=== PATIENT | female | born 1985 | race African-American/Black ===

== ENCOUNTER 2022-11-28 17:57 | Emergency (ER) | payer OTHER, SELFPAY ==
[2022-11-28 18:16] VITALS: BP 132/98; PULSE 78; RESP 20; TEMP 35.8; O2SAT 100
--- NOTE | 2022-11-28 20:03 | PC.NURSE ---
patient left without being seen
== END 2022-11-28 23:02 | disposition left against medical advice (07) ==
DX: R11.2 Nausea with vomiting, unspecified (principal)
CPT/HCPCS: 99199

== ENCOUNTER 2025-01-09 09:33 | Outpatient (CLI) | payer BC, SELFPAY ==
[2025-01-09 09:57] LABS: Hematocrit 24.7 % (37.0-47.0); Hemoglobin 7.0 g/dL (12.0-15.0)
--- OUTSIDE RECORDS SUMMARY | 2025-01-09 10:16 | XMS_ITS | Clinical Summary ---
[facility] Address [address] [place] [id number] Care Team Providers Care Airport Manager Name Role Phone No, Physician Primary Care Provider [phone] No, Physician Unavailable Allergies Active Allergy Reactions Criticality Noted Date Comments Fexofenadine Swelling Medium 04/02/2021 Fexofenadine Anaphylaxis High Reaction: ANAPHYLAXIS Medications tranexamic acid (LYSTEDA) 650 mg tablet Take 2 tablets (1,300 mg total) by mouth 3 (three) times a day 30 tablet 11 05/03/2021 Active Active Problems No known active problems Surgical History Surgery Date Site/Laterality Comments TUBAL LIGATION Bilateral December 2015, pt reported. DILATION AND CURETTAGE OF UTERUS ESSURE TUBAL LIGATION Bilateral Medical History Medical History Date Comments Fibroid Family History Medical History Relation Name Comments Breast cancer Neg Hx Ovarian cancer Neg Hx Social History Tobacco Use Types Packs/Day Years Used Date Smoking Tobacco: Every Day Cigarettes 0.5 15 Smokeless Tobacco: Never Tobacco Cessation:Ready to Q uit: No; Counseling Given: Yes Comments No Sex and Gender Information Value Date Recorded Sex Assigned at Not on file Legal Sex Female 5:12 PM [employer] Gender Identity Not on file Sexual Orientation Not on file Obstetrics History Para Term AB IAB SAB Ectopic Multiple Livin g Live Births 4 2 0 0 0 0 0 0 Date Outcome GA Total Labor Labor/2nd/3rd Weight Sex Type Anes PTL Jade A1 A5 Name Clin Para Para Last Filed Vital Signs Vital Sign Reading Time Taken Comments Blood Pressure 120/84 04/26/2021 12:04 PM [employer] WORK[employer] Pulse 82 04/29/2017 9:59 AM [employer]UDIO [employer] UP WORKER Temperature 36.6 C (97.8 F) 04/29/2017 9:59 AM [employer]UD[employer] UP WORKER Respiratory Rate 18 04/29/2017 9:59 AM [employer]UDIO [employer] UP WORKER Oxygen Saturation 99% 04/29/2017 9:59 AM [employer]UD[employer] UP WORKER Inhaled Oxygen Concentration - - Weight 48.1 kg (106 lb) 04/26/2021 12:04 PM [employer]UD[employer] WORK[employer] Height 153.7 cm (5' 0.51) 04/26/2021 12:04 PM C Body Mass Index 20.35 04/26/2021 12:04 PM [employer]UDIO [employer] WORKER Plan of Treatment Not on file Insurance CHOICE PLUS CHOICE PLUS Care Teams Airport Manager Relationship Specialty Start Date End Date No, Physician PCP - General 03/05/21 No, Physician 03/05/21
== END 2025-01-09 09:34 | disposition home or self-care (01) ==
LOC: ANHSURGERY 09:39
PROVIDERS: Anesthesiology; Visit Provider Obstetrics & Gynecology
DX: D64.9 Anemia, unspecified (principal); R10.20 Pelvic and perineal pain unspecified side
CPT/HCPCS: 36415; 85014; 85018; 86850; 86900; 86901

== ENCOUNTER 2025-01-14 18:06 | Observation (INO) | payer BC, SELFPAY ==
[2025-01-01 14:56] VITALS: BMI 21.9
--- NOTE | 2025-01-01 14:59 | PC.NURSE ---
[facility] has started construction of its new state of the art ER which will open Spring 2026. With this, we anticipate parking may be a challenge for some our surgical patients and families. Parking spaces are limited but are available for all Surgical, obstetrics, and ER patients sharing this lot. If you arrive and find you are having a hard time finding a parking space, please note that we understand the challenges, please drive around the hospital and park near Hospital Entrance 1. When you enter this entrance, you can ask a volunteer to direct or take you back to the surgical waiting area to check in. We appreciate everyone?s understanding of these expected challenges while we build for your future. Report to the Outpatient Waiting Room, entrance under the green pavilion located off [address], at time _0830_ on date _[phone]_. Planned Procedure Time: _1030_.? Time changes happen often and if your time is changed the preop area will call you the afternoon before. - You and your visitor will be asked to self-screen and do not enter if you have any COVID symptoms. Please call surgeon if you need to reschedule. - A mask is optional within the hospital at this time. Patients may have clear liquids (water, carbonated beverages, clear teas, apple juice) until 3 hours prior to surgery with a maximum of 20 ounces. - No food from midnight until time of surgery and no smoking, or chewing tobacco (or any form of nicotine). No chewing gum, candy or mints. Take only the following medications with a SIP of water on the morning of surgery: DO NOT STOP ANY OF YOUR OTHER PRESCRIPTION MEDICATIONS PRIOR TO SURGERY EXCEPT THE FOLLOWING Hold all vitamins and supplements for 3 days per anesthesiologist. Medications to discontinue per physician Date to take last viwu___[phone]___ Please no make-up, nail taiwanese, hairspray, perfume, deodorant, or body powder the day of surgery.? No jewelry (including any body piercings) or valuables the day of surgery, leave them at home.? Please take a shower or bath the night before, or the morning of, surgery with an antibacterial soap.? Wear comfortable, loose fitting clothing.? - Jewelry must be removed prior to entering the operating room.? Rings and piercings that are not removed may be cut off. - The hospital will not accept responsibility for valuables.? - Please leave all valuables, including medications, at home the day of surgery. If you are going home after surgery, a licensed screw driver operator must drive you home.? - NO public transportation without another adult if you receive anesthesia. - We recommend that an adult stay with you for 24 hours following discharge. - We also recommend that you do not drive, make important decision, drink alcoholic beverages, or take any drugs that were not prescribed by your health care provider for at least 24 hours after your discharge time. Follow any additional instructions given to you from your surgeon. Telephone instructions given to __Elin__and asked if any additional questions and then verbalized understanding. Patient advised to call surgeon office or pre surgery nurse liaison [phone] if any additional questions.
[2025-01-14] VITALS (8 sets, daily range): BP systolic 97–123; BP diastolic 66–80; PULSE 66–81; RESP 14–18; TEMP 36.5–36.9; O2SAT 99–100; BMI 20.7
[2025-01-14 18:33] LABS: Hematocrit 23.2 % (37.0-47.0)
[2025-01-14 18:37] LABS: Hemoglobin 6.5 g/dL (12.0-15.0)
[2025-01-14] MEDS: ALPRAZolam (*CRX) 0.5 MG TABLET 1 MG PO (21:15)
[2025-01-15] VITALS (20 sets, daily range): BP systolic 107–181; BP diastolic 65–89; PULSE 58–78; RESP 12–18; TEMP 36.1–37.2; O2SAT 100
[2025-01-15 05:17] LABS: Hematocrit 34.5 % (37.0-47.0); Hemoglobin 10.7 g/dL (12.0-15.0)
--- OUTSIDE RECORDS SUMMARY | 2025-01-15 05:25 | XMS_ITS | Data Portability ---
Author Organization [facility] [place] Address [address] [place] [address] Assessment No assessment recorded. Plan of Treatment Reminders Order Date Submit Date Provider Last Modified By Organization Details Last Modified Time Details Appointments Robotic TL 2024 10:30A Thelma WILLIS MD Not available Not available Not available SURG POST OP 2024 01:15P Thelma WILLIS MD Not available Not available Not available Lab hormone panel, serum or plasma 2024 025 [facility] (Lab), [address], [place], [address], 11/19/2024 14:28:03 HBsAg (hepatiti s B surface Ag), serum [email or web address] (Lab), [address], [place], [address], 12/10/2024 18:51:53 pap, IG + HR HPV - HPV regardles s but if HPV is positive need subtyping 16,18/45 2024 025 [facility] (Lab), [address], [place], [address], 11/19/2024 13:34:52 TSH, serum or plasma 2024 025 [facility] (Lab), [address], [place], [address], 11/19/2024 14:28:03 CBC w/ auto diff 2024 025 [facility] (Lab), [address] , [place], [address], 11/19/2024 14:28:02 CMP, serum or plasma 2024 025 [facility] (Lab), [address] , [place], [address], 11/19/2024 14:28:04 lipid panel, blood 2024 025 [facility] (Lab), [address] , [place], [address], 11/19/2024 14:28:03 HbA1c (hemoglob in A1c), blood 2024 025 [facility] (Lab), [address] , [place], [address], 11/19/2024 14:28:04 Referral None recorded. Procedures None recorded. Surgeries robotic assisted hysterect imtiaz with salpingec john (SURG) 2024 025 [facility], [facility] [address], [address], 11/25/2024 15:38:40 Imaging US, pelvis 2024 025 [email or web address] [place], [facility] [address], [place], [address], 11/18/2024 18:04:29 US, transvagi nal 2024 025 [facility], [facility] [address], [place], [address], 11/18/2024 18:27:41 MAMMO, screening , digital, bilateral [email or web address] [facility], [address] [place] [address], [address], 12/10/2024 18:51:58 Medication Orders hydrocodo ne 10 mg-acetam inophen 325 mg/15 mL (15 mL) oral solution 2024 025 [facility]/Pharmacy #[id number], [address], [place], [address], 01/09/2025 15:27:11 Patient TargetsNo targets recorded. Patient InstructionsNo instructions recorded. Reason for Referral None Reported. Results Created Date Observation Date Name Description Value Unit Range Abnormal Flag Note LastModifiedBy Organization Detail LastModifiedTime 11/15/1911/14/2024 IMAGE GUIDE D PAP AND HPV REGAR DLESS image guided Pap, HPV regardless of Pap result SEE RESULT S BELOW CASE REPOR T: Cytol ogy Gynec ologi graciela Repor t Case: [id number] Autho sandie g Provi efren: Dermo otto, Tha , ANP, HANGER OFF Colle cted: 11/14 1434 Order ing Locat ion: [place] Path[facility] Recei lulu: 11/15 0105 First Scree n: Aruna Harding, CT Rescr een: Anna Pérez, CT Speci men: Kristidom perry Pap - Image d, Cervi x STATE MENT OF ADEQU ACY: Satis facto ry for evalu ation Trans forma tion zone compo nent prese nt ----- ----- ----- ----- ----- ----- ----- ----- ----- ----- ----- ----- ----- ----- ----- ----- ----- ---- FINAL DIAGN OSIS: Negat yamila for Intra epith elial Lesio n or Davi mcknezie (NIL) . Trich omona s vagin rodrigo prese nt. Shift in delia sugge stive of bacte rial vagin osis. Elect krysta owusu by Anna Pérez, CT on 2024 at 1230 CDT ----- ----- ----- ----- ----- ----- ----- ----- ----- ----- ----- ----- ----- ----- ----- ----- ----- ---- HPV RESUL TS: HPV mRNA E6/E7 : No HPV mRNA Detec scott NOTE: This high risk HPV mRNA assay detec ts fourt een high- risk HPV types (16, 18, 31, 33, 35, 39, 45, 51, 52, 56, 58, 59, 66, 68) witho ut diffe renti ation . COMME NT: This speci men was revie wed by a Cytot echno logis t and/o r Patho logis t (as indic ated in this repor t) after evalu ation using the Thinp rep Imagi ng Syste m. CLINI GRACIELA INFOR MATIO N: Menst rual Statu s: LMP (if appli cable ): Clini graciela Histo ry/Pr eviou s Pap: Type of Neopl john (if appli cable ): Signi fican t Clini graciela Findi ngs: Other Histo ry: Hormo mirian (if appli cable ): PAP EDUCA SHANTI L NOTE: The Pap Test is a scree vicky test with an inher ent false negat yamila rate. Liqui d-bas ed sampl ing may decre ase, but will not elimi max, false negat yamila resul ts. A negat yamila resul t does not precl ude the prese nce and/o r devel opmen t of disea se, since the prese nce of abnor mal cells in the sampl e depen ds on the locat ion of the lesio n and sampl ing techn ique. Karlo nued regul ar scree vicky is the best metho d of cance r preve ntion . If repor scott cytol ogic findi ng do not corre late with physi graciela and/o r histo rical findi ngs, fur er inves tigat ion is recom leeann d, as clini bjorn warra nted. Not Available [facility] (Lab) [address], [place], [address], 11/19/2024 13:34:52 11/19/19 25 11/18/2024 CBC W/DIF F WBC 7.6 10'3/ uL 3.5-10 .5 Not Available [facility] (Lab) [address], [place], [address], 11/19/2024 14:28:02 11/19/19 25 11/18/2024 CBC W/DIF F RBC 3.71 10'6/ uL (based on docume nted legal sex) 3.80-5 .20 low Not Available [facility] (Lab) [address], [place], [address], 11/19/2024 14:28:02 11/19/19 25 11/18/2024 CBC W/DIF F HGB 7.6 g/dL (based on docume nted legal sex) 11.6-1 5.4 low Not Available [facility] (Lab) [address], [place], [address], 11/19/2024 14:28:02 11/19/19 25 11/18/2024 CBC W/DIF F HCT 27.7 % (based on docume nted legal sex) 34.0-4 5.0 low Not Available [facility] (Lab) [address], [place], [address], 11/19/2024 14:28:02 11/19/19 25 11/18/2024 CBC W/DIF F MCV 74.7 fL 80.0-9 9.0 low Not Available [facility] (Lab) [address], [place], [address], 11/19/2024 14:28:02 11/19/19 25 11/18/2024 CBC W/DIF F MCH 20.5 pg 27.0-3 4.0 low Not Available [facility] (Lab) [address], [place], [address], 11/19/2024 14:28:02 11/19/19 25 11/18/2024 CBC W/DIF F MCHC 27.4 g/dL 32.0-3 5.5 low Not Available [facility] (Lab) [address] [facility], [place], [address], 11/19/2024 14:28:02 11/19/19 25 11/18/2024 CBC W/DIF F RDW 19.1 % 11.0-1 5.0 high Not Available [facility] (Lab) [address] [facility], [place], [address], 11/19/2024 14:28:02 11/19/19 25 11/18/2024 CBC W/DIF F plt 545 10'3/ uL 150-40 0 high Not Available [facility] (Lab) [address] [facility], [place], [address], 11/19/2024 14:28:02 11/19/19 25 11/18/2024 CBC W/DIF F MPV 9.3 fL 8.8-12 .1 Not Available [facility] (Lab) [address] [facility], [place], [address], 11/19/2024 14:28:02 11/19/19 25 11/18/2024 CBC W/DIF F NRBC's 0.0 % 0.0 Not Available [facility] (Lab) [address] [facility], [place], [address], 11/19/2024 14:28:02 11/19/19 25 11/18/2024 CBC W/DIF F absolute NRBCs 0.0 10'3/ uL no refere nce range establ ished Not Available [facility] (Lab) [address] [facility], [place], [address], 11/19/2024 14:28:02 11/19/19 25 11/18/2024 CBC W/DIF F neutrophils 62.3 % 34.0-7 3.0 Not Available [facility] (Lab) [address] [facility], [place], [address], 11/19/2024 14:28:02 11/19/19 25 11/18/2024 CBC W/DIF F lymphocytes 29.6 % 15.0-5 0.0 Not Available [facility] (Lab) [address] [facility], [place], [address], 11/19/2024 14:28:02 11/19/19 25 11/18/2024 CBC W/DIF F monocytes 6.7 % 1.0-15 .0 Not Available [facility] (Lab) [address] [facility], [place], [address], 11/19/2024 14:28:02 11/19/19 25 11/18/2024 CBC W/DIF F eosinophils 0.4 % 0.0-8. 0 Not Available [facility] (Lab) [address] [facility], [place], [address], 11/19/2024 14:28:02 11/19/19 25 11/18/2024 CBC W/DIF F basophils 0.7 % 0.0-2. 0 Not Available [facility] (Lab) [address] [facility], [place], [address], 11/19/2024 14:28:02 11/19/19 25 11/18/2024 CBC W/DIF F immature granulocytes 0.3 % no define d refere nce range Immat ure Granu locyt es (IG) repre sents autom ated enume ratio n of Metam yeloc ytes, Myelo cytes and Promy elocy amos when IG is < 5%. Blast s are not inclu ded in IG and repor scott separ ately if prese nt. Not Available [facility] (Lab) [address] [facility], [place], [address], 11/19/2024 14:28:02 11/19/19 25 11/18/2024 CBC W/DIF F absolute neutrophils 4.8 10'3/ uL 1.5-8. 0 Not Available [facility] (Lab) [address] [facility], [place], [address], 11/19/2024 14:28:02 11/19/19 25 11/18/2024 CBC W/DIF F absolute lymphocytes 2.3 10'3/ uL 1.0-4. 0 Not Available [facility] (Lab) [address] [facility], [place], [address], 11/19/2024 14:28:02 11/19/19 25 11/18/2024 CBC W/DIF F absolute monocytes 0.5 10'3/ uL 0.2-1. 0 Not Available [facility] (Lab) [address] [facility], [place], [address], 11/19/2024 14:28:02 11/19/19 25 11/18/2024 CBC W/DIF F absolute eosinophils 0.0 10'3/ uL 0.0-0. 6 Not Available [facility] (Lab) [address] [facility], [place], [address], 11/19/2024 14:28:02 11/19/19 25 11/18/2024 CBC W/DIF F absolute basophils 0.1 10'3/ uL 0.0-0. 3 Not Available [facility] (Lab) [address] [facility], [place], [address], 11/19/2024 14:28:02 11/19/19 25 11/18/2024 CBC W/DIF F absolute immature granulocytes 0.0 10'3/ uL 0.00-0 .10 Refer ence range s for nonbi nary/ inter sex or unspe cifie d gende r patie nts have not been estab lishe d. Pleas e refer [facility] for range s estab lishe d for cisge nder patie nts and evalu ate in the clini graciela clay xt of the indiv idual patie nt: https :[email or web address] lassiter book. nm.or g/gen derx Not Available [facility] (Lab) [address] [place], [address], 11/19/2024 14:28:02 11/19/1911/18/2024 FSH, LH, ESTRA DIOL estradiol 397.0 pg/mL This assay was perfo rmed using [employer] ratio n reage nts and test kits. Value s obtai sammy with other assay metho ds or kits canno t be used inter [facility] . Femal e Estra diol Range s: Folli cular phase 12.4- 233 pg/mL Ovula tion phase 41.0- 398 pg/mL Lutea l phase 22.3- 341 pg/mL Postm enopa usal <5-13 8 pg/mL Healt hy Pregn ant Women 1st Trime ster 154-3 243 pg/mL 2nd Trime ster 1561- 71564 pg/mL 3rd Trime ster 8525- >3000 0 pg/mL Not Available [facility] (Lab) [address] [place], [address], 11/19/2024 14:28:03 11/19/19 25 11/18/2024 FSH, LH, ESTRA DIOL FSH 7.3 mIU/m L This assay was perfo rmed using [employer] ratio n reage nts and test kits. Value s obtai sammy with other assay metho ds or kits canno t be used inter [facility] . Femal es Folli cular : 3.5-1 2.5 mIU/m L Ovula tion: 4.7-2 1.5 mIU/m L Lutea l: 1.7-7 .7 mIU/m L Postm enopa use: 25.8- 134.8 mIU/m L Not Available [facility] (Lab) [address] [place], [address], 11/19/2024 14:28:03 11/19/19 25 11/18/2024 FSH, LH, ESTRA DIOL LH 27.6 mIU/m L This assay was perfo rmed using [employer] n reage nts and test kits. Value s obtai sammy with other assay metho ds or kits canno t be used inter [facility] . Femal es Mid-F ollic ular: 2.4-1 2.6 mIU/m L Mid-C ycle: 14.0- 95.6 mIU/m L Mid-L uteal : 1.0-1 1.4 mIU/m L Postm enopa use: 7.7-5 8.5 mIU/m L Not Available [facility] (Lab) [address] [facility], [place], [address], 11/19/2024 14:28:03 11/19/19 25 11/18/2024 TSH, REFLE X FREE T4 TSH 0.64 uIU/m L 0.30-5 .33 Not Available [facility] (Lab) [address] [facility], [place], [address], 11/19/2024 14:28:03 11/19/19 25 11/18/2024 LIPID PANEL ,AMA (LDL- CALC) total cholesterol 171 mg/dL 0-199 Not Available [facility] (Lab) [address] [place], [address], 11/19/2024 14:28:03 11/19/19 25 11/18/2024 LIPID PANEL ,AMA (LDL- CALC) triglyceride s 81 mg/dL 0-150 NCEP Refer ence Value s for Trigl yceri mejia: Maria Fernanda l: <150 mg/dL Borde rline High: 150 - 199 mg/dL High: 200 - 499 mg/dL Very High: >/= 500 mg/dL Not Available [facility] (Lab) [address] [place], [address], 11/19/2024 14:28:03 11/19/19 25 11/18/2024 LIPID PANEL ,AMA (LDL- CALC) HDL cholesterol 53 mg/dL >40 Not Available [facility] (Lab) [address] [place], [address], 11/19/2024 14:28:03 11/19/1911/18/2024 LIPID PANEL ,AMA (LDL- CALC) LDL cholesterol 101 mg/dL 0-99 high Cutof f value s recom leeann d by the Natio nal Luisa stero l Educa tion Progr am: FEMI ABLE: Luisa stero l <200 mg/dL LDL <100 mg/dL BORDE RLINE : Luisa stero l 200-2 39 mg/dL LDL 101-1 59 mg/dL HIGHE R RISK: Luisa stero l >240 mg/dL LDL >160 mg/dL , HDL <40 mg/dL Not Available [facility] (Lab) [address] [facility], [place], [address], 11/19/2024 14:28:03 11/19/1911/18/2024 LIPID PANEL ,AMA (LDL- CALC) non-HDL cholesterol 118 mg/dL no refere nce range A reaso nable goal for non-H DL luisa stero l is one that is 30 mg/dL highe r than the LDL luisa stero l goal. Not Available [facility] (Lab) [address], [place], [address], 11/19/2024 14:28:03 11/19/1911/18/2024 LIPID PANEL ,AMA (LDL- CALC) chol/HDL ratio 3.2 . 0.0-5. 0 On June 21, 2022, [facility] labor atori lorraine de los santos ed the equat ion for calcu latin g estim ated low-d ensit y lipop rotei n-cho leste rol (LDL- C) from the Fried marlo equat ion to the Ivonne n/Hop kins equat ion. This new equat ion is only valid for lipid panel s with trigl yceri mejia < 400 mg/dL . Studi es renzo demon strat ed that this new equat ion will impro ve the accur acy of LDL-C , espec ially in scena garcia when LDL-C carrie ntrat ions are relat ively low (< 100 mg/dL ), trigl yceri mejia are eleva scott, or patie nt is non-f astin g. Refer ences : - Ivonne piña, Agapito Don, Roberth Srivastava , Grant paris, Rich Morales, Rich whiteside, Tam bal , and Sylvester Harding . 2013. Comp ariso n of a Novel Metho d vs the Fried marlo Equat ion for Estim ating Low-D ensit y Lipop rotei n Luisa stero l Level s from the Stand jane Lipid Proflaura werner. JESSIKA: The Journ al of the Ameri can Medic al Assoc iatio n 310 (19): 2060- . - Edwardo patel V, Giselle J, Aris patel A, Jaciel M, Timur fernandes R, Janet patel E, Key bal RS, Mehdi SR, Ivonne piña SS. Fast ing Versu s Nonfa sting and Low-D ensit y Lipop rotei n Luisa stero l Accur acy. Circu latio n. 2017Feb 28;137 (1):1 0-19. Not Available [facility] (Lab) [address] [place], [address], 11/19/2024 14:28:03 11/19/19 25 11/18/2024 CMP(C OMPRE HENSI VE METAB OLIC PANEL ) sodium 138 mmol/ L 133-14 6 Not Available [facility] (Lab) [address] [place], [address], 11/19/2024 14:28:04 11/19/19 25 11/18/2024 CMP(C OMPRE HENSI VE METAB OLIC PANEL ) potassium 4.4 mmol/ L 3.5-5. 1 Not Available [facility] (Lab) [address] [place], [address], 11/19/2024 14:28:04 11/19/19 25 11/18/2024 CMP(C OMPRE HENSI VE METAB OLIC PANEL ) chloride 105 mmol/ L 98-107 Not Available [facility] (Lab) [address] [place], [address], 11/19/2024 14:28:04 11/19/19 25 11/18/2024 CMP(C OMPRE HENSI VE METAB OLIC PANEL ) carbon dioxide 26 mmol/ L 21-31 Not Available [facility] (Lab) [address], [place], [address], 11/19/2024 14:28:04 11/19/19 25 11/18/2024 CMP(C OMPRE HENSI VE METAB OLIC PANEL ) anion gap 7 mmol/ L 4-13 Not Available [facility] (Lab) [address], [place], [address], 11/19/2024 14:28:04 11/19/19 25 11/18/2024 CMP(C OMPRE HENSI VE METAB OLIC PANEL ) blood urea nitrogen 10 mg/dL 7-25 Not Available [facility] (Lab) [address], [place], [address], 11/19/2024 14:28:04 11/19/19 25 11/18/2024 CMP(C OMPRE HENSI VE METAB OLIC PANEL ) creatinine 0.87 mg/dL 0.60-1 .30 Not Available [facility] (Lab) [address], [place], [address], 11/19/2024 14:28:04 11/19/19 25 11/18/2024 CMP(C OMPRE HENSI VE METAB OLIC PANEL ) egfrcr (CKD-epi 2020) 86 mL/mi n/1.7 3_m2 >=60 Not Available [facility] (Lab) [address], [place], [address], 11/19/2024 14:28:04 11/19/19 25 11/18/2024 CMP(C OMPRE HENSI VE METAB OLIC PANEL ) calcium 10.8 mg/dL 8.3-10 .5 high Not Available [facility] (Lab) [address], [place], [address], 11/19/2024 14:28:04 11/19/19 25 11/18/2024 CMP(C OMPRE HENSI VE METAB OLIC PANEL ) glucose 91 mg/dL 70-100 Not Available [facility] (Lab) [address] [facility], [place], [address], 11/19/2024 14:28:04 11/19/19 25 11/18/2024 CMP(C OMPRE HENSI VE METAB OLIC PANEL ) protein, total 7.4 g/dL 6.4-8. 3 Not Available [facility] (Lab) [address] [facility], [place], [address], 11/19/2024 14:28:04 11/19/19 25 11/18/2024 CMP(C OMPRE HENSI VE METAB OLIC PANEL ) albumin 4.2 g/dL 3.5-5. 0 Not Available [facility] (Lab) [address] [facility], [place], [address], 11/19/2024 14:28:04 11/19/19 25 11/18/2024 CMP(C OMPRE HENSI VE METAB OLIC PANEL ) ALT 6 units /L 9-43 low Not Available [facility] (Lab) [address] [facility], [place], [address], 11/19/2024 14:28:04 11/19/19 25 11/18/2024 CMP(C OMPRE HENSI VE METAB OLIC PANEL ) alkaline phosphatase 78 units /L 34-104 Not Available [facility] (Lab) [address] [facility], [place], [address], 11/19/2024 14:28:04 11/19/19 25 11/18/2024 CMP(C OMPRE HENSI VE METAB OLIC PANEL ) AST 15 units /L 13-39 Not Available [facility] (Lab) [address] [facility], [place], [address], 11/19/2024 14:28:04 11/19/19 25 11/18/2024 CMP(C OMPRE HENSI VE METAB OLIC PANEL ) bilirubin, total 0.2 mg/dL 0.2-1. 2 Not Available [facility] (Lab) [address], [place], [address], 11/19/2024 14:28:04 11/19/19 25 11/18/2024 HEMOG LOBIN A1C hemoglobin A1C 5.4 % 4.0-5. 6 The Ameri can Diabe amos Assoc iatio n recom mends that a prima ry goal of thera py shoul d be a HBA1C of < 7% and that physi cians shoul d reeva luate the treat ment regim en in patie nts with HBA1C value s consi stent ly > 8%. <5.7% Maria Fernanda l 5.7 - 6.4% Incre ased risk for diabe amos >=6.5 % Diagn ostic of diabe amos <7.0% Goal of thera py >8.0% Actio n sugge sted Not Available [facility] (Lab) [address], [place], [address], 11/19/2024 14:28:04 11/19/19 25 11/18/2024 US, pelvi s No observ ation record ed. [email or web address] [place] [address], [place], [address], 11/18/2024 18:27:33 11/19/19 25 11/18/2024 US, trans vagin al No observ ation record ed. [email or web address] [place] [address], [place], [address], 11/18/2024 18:27:42 11/19/19 25 11/18/2024 US, pelvi s No observ ation record ed. [email or web address] [address] [address], [place], [address], 11/18/2024 16:25:26 Result Notes None recorded. Procedures Surgical History Date Name Laterality Status Provider Name and Address Organization Details Recorded Time 11/14/2024 Date of Last Pap Smear completed Sabina Gambino [facility] 01/09/2025 14:58:56 Imaging Results None recorded. Procedure Notes None recorded. Medical Equipment None Reported. Allergies Allergen ID Allergen Name Allergen Category Reaction Reaction Severity Criticality Documentation Date Start Date Code Code System Note Provider Name and Address Organization Details Recorded Time 85016 Unable to Assess Not available eye swelling severe Not available 11/14/2024 Brittni Negritathomas carballo [facility] 5 11:59:52 31172 Meeta medicatio n Not available Not available Not available 11/14/2024 99047 6 RxNorm swell ing of eyes and throa t Brittni carballo [facility] 5 12:00:05 Medications Name Sig Start Date Stop Date Status Note LastModified by Organization Details LastModified Time ferrous sulfate 325 mg (65 mg iron) tablet Take 1 tablet every day by oral route for 30 days. 2024 active Not Available Not Available Not Avai lable ParaGard T 380A 380 square mm intrauteri ne device Take by intrauter ine route. 2013 active surgicall y inserted Not Available Not Available Not Available hydrocodon e 7.5 mg-acetami nophen 325 mg/15 mL oral solution TAKE 15 ML BY MOUTH EVERY 4 TO 6 HOURS active Not Available Not Available No t Available hydrocodon e 10 mg-acetami nophen 325 mg/15 mL (15 mL) oral solution Take 15 mL every 4-6 hours by oral route. 2024 active Not Available Not Available Not Carlitosai lyly Vitals Date Recorded Body weight Body mass index (BMI) Body height Systolic And Diastolic Provider Name and Address Organization Details Last Updated DateTime 11/14/2024 52732.37 g 21.8 kg/m2 153.67 cm 128/82 mm[Hg] Brittni Negrita [facility] 11/14/2024 11:57:30 Date Recorded Body height Body mass index (BMI) Body weight Systolic And Diastolic Provider Name and Address Organization Details Last Updated DateTime 11/23/2024 153.67 cm 21.7 kg/m2 76574.66 g 121/77 mm[Hg] Brittni Rees [facility] 11/23/2024 11:42:22 Date Recorded Body height Body mass index (BMI) Body weight Systolic And Diastolic Provider Name and Address Organization Details Last Updated DateTime 01/09/2025 153.67 cm 20.6 kg/m2 06380.38 g 123/79 mm[Hg] Sabina Weberer [facility] 01/09/2025 14:58:25 Social History Question Answer Notes LastModified by Organizat ion Details LastModified Time Tobacco Smoking Status Current Every Day Smoker Brittni Rees kait [facility] 11/14/2024 12:06:09 Do You Have An Advance Directive? No [email or web address] Information not available 11/14/2024 Are You Blind Or Do You Have Difficulty Seeing? Yes Left Eye Issue [email or web address] Information not available 11/14/2024 What Is Your Level Of Caffeine Consumption? Moderate Information not available 11/14/2024 In The 14 Days Before Symptom Onset, Have You Had Close Contact With A Laboratory-confir med COVID-19 While That Case Was Ill? No [email or web address] Information not available 11/14/2024 In The 14 Days Before Symptom Onset, Have You Had Close Contact With A Person Who Is Under Investigation For COVID-19 While That Person Was Ill? No [email or web address] Information not available 11/14/2024 Have You Been To An Area Known To Be High Risk For COVID-19? No [email or web address] Information not available 11/14/2024 Are You Deaf Or Do You Have Serious Difficulty Hearing? 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 NP57111-9 [email or web address] Information not available 11/14/2024 Are There Any Guns Present In Your Home? No Information not available 11/14/2024 Do You Use Protection During Sex? No [email or web address] Information not available 11/14/2024 Do You Use Your Seat Belt Or Car Seat Routinely? Yes [email or web address] Information not available 11/14/2024 Are You Sexually Active? No [email or web address] Information not available 11/14/2024 Do You Have Smoke And Carbon Monoxide Detectors In Your Home? Yes [email or web address] Information not available 11/14/2024 How Much Tobacco Do You Smoke? No [email or web address] Information not available 11/14/2024 Do You Use Sunscreen Routinely? No [email or web address] Information not available 11/14/2024 Have You Used IV Drugs? No [email or web address] Information not available 11/14/2024 Do You Have Difficulty Walking Or Climbing Stairs? No [email or web address] Information not available 11/14/2024 Sex: Unknown Functional Status Question Answer Note LastModified by Organizat ion Details LastModified Time Do you use any illicit or recreational drugs? No [email or web address] Information not available 11/14/2024 What is your level of alcohol consumption? None [email or web address] Information not available 11/14/2024 Are you currently employed? Yes [email or web address] Information not available 11/14/2024 Are you able to walk independently without assistance or assistive devices? YESWOREST [email or web address] Information not available 11/14/2024 Are you able to care for yourself independently? 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 No [email or web address] Information not available 11/14/2024 What is your exercise level? None [email or web address] Information not available 11/14/2024 Mental Status Question Answer Note LastModified by Organization D etails LastModified Time Do you feel stressed (tense, restless, nervous, or anxious, or unable to sleep at night)? [id number] [email or web address] Information not available 11/14/2024 Family History Relationship Description Onset Age of this Age Resolved Age Notes LastModified by Organization Details LastModified Time Mother Schizophreni a [email or web address] Not available 2024 12:05:21 Mother Bipolar disorder [email or web address] Not available 2024 12:05:28 Mother Epilepsy [email or web address] Not availabl e 11/14/2024 12:05:36 Mother Malignant neoplasm of skin [email or web address] Not available 2024 12:05:44 Medical History Condition Response Allergies (Food, seasonal, environmental ) N Other N Drug/Latex Allergies/Reactions N Breast Cancer N Blood Transfusion N Dermatologic Disorders N Lung Disease N Defects or Inherited Disease N Breast Problem N Gestational Diabetes N Hematologic disorders N Anesthesia Complications N History of STI N Deep Vein Thrombosis N Polycystic ovary syndrome N Anxiety Disorder N Autoimmune disease N Arthritis N Infertility N Polyps N Acid Reflux (GERD) N History of abnormal pap N Cancer N Stroke N Varicosities N Neurologic/Epilepsy N Endometriosis N High Cholesterol N Fibromyalgia N Headaches N Kidney Disease N Heart Problems N Thyroid Problems N Kidney or Bladder Problems N GI Problems N Eating Disorder N Anemia N Art (IVF or FET) N Psychiatric Illness N Ovarian Cancer N Diabetes N Pulmonary (TB, Asthma) N Hepatitis/Liver Disease N No Past Medical History N Eczema N Urinary Tract Infection N Abuse/Domestic Violence N Asthma N Trauma/Violence N Depression/ depression N Heart Disease N Pre-Eclampsia N Hypertension N Osteoporosis N Thrombophilias N Gynecological History Statement/Question Response Date of Last Mammogram Flow Heavy Date of LMP 01/04/2025 N Was last menstrual period normal N STIs/STDs N Date of Last Colonoscopy Desired Control Method Hysterectom y Abnormal Pap Y HPV Vaccine N Duration of Flow (days) 10 Current Control Method IUD Age at First Child 19 Are cycles usually normal N Frequency of Cycle (Q days) 20 Most Recent Bone Density Sexually Active? N Menses Monthly Y Date of DEXA bone scan Age of first menstrual cycle 9 Date of Last Pap Smear 11/14/2024 Sexual Problems? N LMP Definite N Obstetrics History GPAL:G 2 P 2 0 0 2 Type Value Full Term 2 Living 2 Total 2 Past Encounters Encounter ID Performer Location Encounter Start Date Encounter Closed Date Diagnosis/Indication Diagnosis SNOMED-CT Code Diagnosis ICD10 Code Diagnosis IMO Codes Diagnosis Note [id number] THA CALHOUN, STEPHANIE [place] [address] [address] 11/14/2024 11:38:30 11/14/2024 14:17:02 Routine gynecologic examination 042542528 Z01.419 [id number] Annual gynecologi graciela exam performed. Patient will come back in a year unless there are new symptoms. Suggest Calcium with Vitamin D if not eating in diet. Patient advised to get annual flu shot. Recommend yearly physicals and perform monthly breast exams. Genetic testing is available for patients with family history of cancer. Engage in safe sexual practices, use condoms. Encouraged to have daily exercise. Avoid tobacco and illicit drugs, moderation of alcohol. If BMI greater than 25 dietary consult advised. If you have any questions please call or email. mammogram- ordered; pt to schedule Pap smear- pap w/ HPV collected (pt states that last pap smear in 2021 was abnormal - HPV positive) laboratory evaluation - requested STI testing - requested Screening mammography 24 [id number] Z12.31 [id number] Menopausal symptom 09177 002 N95.1 242035 Reviewed self-help strategies (dietary changes/ex ercise/acu puncture/e tc.), herbal and other OTC therapies, hormonal options as well as other medication s used to treat common menopausal symptoms.W ill order labs to assess for samira-menop ause and r/o other causes of samira-menop ausal sx. Venereal d isease screening [id number] Z11.3 151324 Pt requested STI testing.Di scussed the various types of STDs, related symptoms and the potential consequenc es (including effects on fertility) of STD infections . Reviewed ways to limit exposure and prevention techniques . Menorrhagia [id number] N9 2.0 [id number] -Chronic dysmenorrh ea and heavy periods-Hx uterine fibroid, but never follow-up with previous OBGYN due to losing her insurance- Patient stated that she has non-hormon al IUD that was surgically inserted in 2013, however, no IUD strings appreciate d on today's exam. Upon reviewing patient's medical records from previous provider (MD Jeff), it was discovered that patient had Essure procedure in the past and likely does not have non-hormon al IUD.-Pelvi c ultrasound ordered for further evaluation with subsequent treatment/ surgical consult with ; patient desires hysterecto my. [id number] Wilian Willis MD [place] [address] [address] 11/18/2024 11:25:42 11/18/2024 12:16:21 Menorrhagia 437576540 N92.0 N95.1 [id number] Wilian Willis MD [facility] [address] [address] 11/23/2024 11:39:07 11/25/2024 10:37:31 Menorrhagia 088766818 N92.0 [id number] 39-year-ol d female with uterine myoma, menorrhagi a and dysmenorrh ea. . She has longstandi ng very heavy bleeding. Her menses are regular. However, they require double protection . Patient has accidents, getting blood on her bedding and clothing. Is affected work. She changes a pad or tampon every hour. She leaks blood around the pad and tampon. This bleeding has a profound impact on her quality of life and her activities of daily living. Her pain has profound. She has severe pain at the time of her menses. It greatly impacts her activities daily living and her quality of life. It affects her work and her relationsh ips. We discussed treatment options in detail. We discussed medical and surgical treatment options. The patient would like definitive surgical treatment. Agreed to proceed with robotic assisted hysterecto my with bilateral salpingect imtiaz. The patient understand s the procedure. The procedure was described to the patient in great detail. the patient also understand s the risks. The risks were also explained in detail. She understand s that injuries May occur during surgery. She understand s these injuries can result in hospitaliz ation, more surgery, and severe illness. She understand s there is risk of hemorrhage and infection. I spent over 40 minutes on her care in total. Dysmenorrhea [id number] N 94.6 44208 Uterine leiomyoma 402933 05 D25.9 [id number] Wilian Willis MD [place] [address] [address] 01/09/2025 14:50:42 01/09/2025 15:38:06 Pain in pelvis 78936658 R10.20 64490 Menorrhagia 087651849 N9 2.0 [id number] This patient is a 39 year old female with severe menorrhagi a and dysmenorrh ea along with uterine fibroids. We have agreed to perform robotic assisted hysterecto my with bilateral salpingect imtiaz. She understand s the risks, benefits, and alternativ es. She has completed the informed consent process and is ready to proceed. Dysmenorrhea 673939642 N 94.6 32030 Health Concerns Section Related Observation LastModified by Organization Detai ls LastModified Time None Recorded Concern Status LastModified by Organization Details LastModified Time None Recorded Advance Directives Directive N: Payers Insurance Date Sequence Insurance Name Policy Number Policy At[place] Covered Member ID [place] Member ID Guarantor Name 01/12/2025 1 [id number] Elin Arce [id number] Elin Arce Notes Date Note Type Note Provider Name and Address Organization Details Recorded Time 5 text/html Annual GYNReported by PatientGenitourinary symptomsFor menstrual cycle, patient reportssevere dysmenorrhea,menorrhagia, andperimenopausal. For urinary symptoms, patient reportsno hematuriaandno incontinence. For vulva, patient reportsno genital lesion. For vagina, patient reportsnormal vaginal discharge.Breast symptomsFor breast, patient reportsno breast pain,no breast lump, andno nipple discharge.Endocrine symptomsFor menopausal symptoms, patient reportshot flashesandinadequacy of lubrication of vaginal mucosa. For sexual complaints, patient reportsno sexual complaints,no pain during intercourse, andnormal libido.Psychological symptomsFor psychological symptoms, patient reportsno depression,no anxiety, andno pmdd.Preventative measuresFor preventive measures, patient reportsencourage self breast examination,encourage regular exercise,encourage no tobacco use, andencourage regular mammograms starting age 40. New patient presents to establish care.Patient c/o heavy, painful periods for several years. Patient states that she has severe pelvic pressure and cramping during each period. Cycles q20 days and last 10 days.Patient states that she will often call off work due to the pain. Patient reports being evaluated three years ago for this pain and she was diagnosed with a large uterine fibroid. Patient states that she lost her insurance and was unable to follow-up for treatment.Patient states that she had a non-hormonal IUD surgically inserted in 2013 and it is .Patient also reports increased mood swings, hot flashes, and night sweats over the past year. THA CALHOUN NP [address], [place], [address], [facility] 11/14/2024 13:48:07 5 text/html 39-year-old female with Uterine myoma, menorrhagia and dysmenorrhea. . She has longstanding very heavy bleeding. Her menses are regular. However, they require double protection. Patient has accidents, getting blood on her bedding and clothing. Is affected work. She changes a pad or tampon every hour. She leaks blood around the pad and tampon. This bleeding has a profound impact on her quality of life and her activities of daily living. Her pain has profound. She has severe pain at the time of her menses. It greatly impacts her activities daily living and her quality of life. It affects her work and her relationships. We discussed treatment options in detail. We discussed medical and surgical treatment options. The patient would like definitive surgical treatment. Agreed to proceed with robotic assisted hysterectomy with bilateral salpingectomy. The patient understands the procedure. The procedure was described to the patient in great detail. the patient also understands the risks. The risks were also explained in detail. She understands that injuries May occur during surgery. She understands these injuries can result in hospitalization, more surgery, and severe illness. She understands there is risk of hemorrhage and infection. I spent over 40 minutes on her care in total. Wilian Willis MD [address], [place], [address], [facility] 11/23/2024 14:20:52 5 text/html 39-year-old female with uterine myoma, menorrhagia and dysmenorrhea. . She has longstanding very heavy bleeding. Her menses are regular. However, they require double protection. Patient has accidents, getting blood on her bedding and clothing. Is affected work. She changes a pad or tampon every hour. She leaks blood around the pad and tampon. This bleeding has a profound impact on her quality of life and her activities of daily living.Her pain has profound. She has severe pain at the time of her menses. It greatly impacts her activities daily living and her quality of life. It affects her work and her relationships.We discussed treatment options in detail. We discussed medical and surgical treatment options. The patient would like definitive surgical treatment. Agreed to proceed with robotic assisted hysterectomy with bilateral salpingectomy.The patient understands the procedure. The procedure was described to the patient in great detail. the patient also understands the risks. The risks were also explained in detail. She understands that injuries May occur during surgery. She understands these injuries can result in hospitalization, more surgery, and severe illness. She understands there is risk of hemorrhage and infection. I spent over 40 minutes on her care in total. Wilian Willis MD [address], [place], [address], [facility] 01/09/2025 15:37:28 OBGyn Episode Ob Episode Information Episode Created Date Number of Fetuses Patient Bloodtype Patient rh Status Prepregnancy Weight lbs Domestic Partner Domestic Partner Phone Father Name Range Ecologist Status 11/15/19 1 CLOSED Fetus Data First Name Last Name Admitted to NICU Weight (g) Sex Living Outcome Pediatric Complications Fetus ID Race Codes Race Delivery Type 3373.36 3704 M Full Term [id number] Vaginal Delivery Golden Calculation Initial Golden Date Initial Exam Date Initial Exam Provider Initial Ultrasound Date Last Menstrual Period Date Ultra Sound Weeks Gestation 0 Eighteen To Twenty Week Golden Update Ultra Sound Date Fundal Height At Umbil Quickening Date Ultra Sound Latest Weeks Gestation Final Golden Confirmed By Final Golden Confirmed Date Final Golden Date Ultra Sound Latest Days Gestation 0 0 Menstrual History Last Menstrual Date Menses Monthly On Bcp Conception Prior Menses Frequency Hcg Plus Date Menarche Onset Age Delivery Information Delivery Date Delivery Type Labor Anesthesia Weeks Gestation Incision Type Labor Labor Length Hrs Delivered By Post Complications Tubal Sterilization Discharge Date Comments 4 38 Discharge Information Feeding Method Contraceptive Method Maternal HG B and HCT Levels Ob Episode Information Episode Created Date Number of Fetuses Patient Bloodtype Patient rh Status Prepregnancy Weight lbs Domestic Partner Domestic Partner Phone Father Name Range Ecologist Status 11/15/19 1 CLOSED Fetus Data First Name Last Name Admitted to NICU Weight (g) Sex Living Outcome Pediatric Complications Fetus ID Race Codes Race Delivery Type 3175.14 4 M Full Term [id number] Vaginal Delivery Golden Calculation Initial Golden Date Initial Exam Date Initial Exam Provider Initial Ultrasound Date Last Menstrual Period Date Ultra Sound Weeks Gestation 0 Eighteen To Twenty Week Golden Update Ultra Sound Date Fundal Height At Umbil Quickening Date Ultra Sound Latest Weeks Gestation Final Golden Confirmed By Final Golden Confirmed Date Final Golden Date Ultra Sound Latest Days Gestation 0 0 Menstrual History Last Menstrual Date Menses Monthly On Bcp Conception Prior Menses Frequency Hcg Plus Date Menarche Onset Age Delivery Information Delivery Date Delivery Type Labor Anesthesia Weeks Gestation Incision Type Labor Labor Length Hrs Delivered By Post Complications Tubal Sterilization Discharge Date Comments 4 39 Discharge Information Feeding Method Contraceptive Method Maternal HG B and HCT Levels
--- OUTSIDE RECORDS SUMMARY | 2025-01-15 05:25 | XMS_ITS | Continuity of Care Document ---
Author Organization [facility] [place] Address [address] [place] [address] Assessment No assessment recorded. Plan of Treatment Reminders Order Date Submit Date Provider Last Modified By Organization Details Last Modified Time Details Appointments Robotic TL 2024 10:30A Thelma AYERS MD Not available Not available Not available SURG POST OP 2024 01:15P Thelma AYERS MD Not available Not available Not available Lab hormone panel, serum or plasma 2024 025 [facility] (Lab), [address], [place], [address], 11/19/2024 14:28:03 HBsAg (hepatiti s B surface Ag), serum [email or web address] (Lab), [address], [place], [address], 12/10/2024 18:51:53 pap, IG + HR HPV - HPV regardles s but if HPV is positive need subtyping 16,18/45 2024 025 [facility] (Lab), [address], [place], [address], 11/19/2024 13:34:52 TSH, serum or plasma 2024 025 [facility] (Lab), [address], [place], [address], 11/19/2024 14:28:03 CBC w/ auto diff 2024 025 [facility] (Lab), [address], [place], [address], 11/19/2024 14:28:02 CMP, serum or plasma 2024 025 [facility] (Lab), [address], [place], [address], 11/19/2024 14:28:04 lipid panel, blood 2024 025 [facility] (Lab), [address], [place], [address], 11/19/2024 14:28:03 HbA1c (hemoglob in A1c), blood 2024 025 [facility] (Lab), [address], [place], [address], 11/19/2024 14:28:04 Referral None recorded. Procedures None recorded. Surgeries None recorded. Imaging MAMMO, screening , digital, bilateral [address] [facility], [address] [place] [address], [address], 12/10/2024 18:51:58 Medication Orders None recorded. Patient TargetsNo targets recorded. Patient InstructionsNo instructions recorded. Reason for Referral None Reported. 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 Trich omona s vagin rodrigo prese nt. Shift in delia sugge stive of bacte rial vagin osis. Elect krysta toro chasity d by Anna Pérez, CT on 2024 at [...] Thinp rep Imagi ng Syste m. CLINI SANTY INFOR MATIO N: Menst rual Statu s: LMP (if appli cable ): Clini santy Histo ry/Pr eviou s Pap: Type of Neopl john (if appli cable ): Signi fican t Clini santy Findi ngs: Other Histo ry: Hormo mirian [...] ng do not corre late with physi santy and/o r histo rical findi ngs, furth er inves tigat ion is recom leeann d, as clini bjorn warrjenny nted. Not Available [facility] (Lab) [address], [place], [address], 11/19/2024 13:34:52 11/19/19 25 11/18/2024 CBC W/DIF F WBC 7.6 10'3/ uL 3.5-10 .5 Not Available [facility] (Lab) [address] [place], [address], 11/19/2024 14:28:02 11/19/19 25 11/18/2024 CBC W/DIF F RBC 3.71 10'6/ uL (based on docume nted legal sex) 3.80-5 .20 low Not Available [facility] (Lab) [address] [place], [address], 11/19/2024 14:28:02 11/19/19 25 11/18/2024 CBC W/DIF F HGB 7.6 g/dL (based on docume nted legal sex) 11.6-1 5.4 low Not Available [facility] (Lab) [address] [place], [address], 11/19/2024 14:28:02 11/19/19 25 11/18/2024 CBC W/DIF F HCT 27.7 % (based on docume nted legal sex) 34.0-4 5.0 low Not Available [facility] (Lab) [address], [place], [address], 11/19/2024 14:28:02 11/19/19 25 11/18/2024 CBC W/DIF F MCV 74.7 fL 80.0-9 9.0 low Not Available [facility] (Lab) [address], [place], [address], 11/19/2024 14:28:02 11/19/19 25 11/18/2024 CBC W/DIF F MCH 20.5 pg 27.0-3 4.0 low Not Available [facility] (Lab) [address], [place], [address], 11/19/2024 14:28:02 11/19/19 25 11/18/2024 CBC W/DIF F MCHC 27.4 g/dL 32.0-3 5.5 low Not Available [facility] (Lab) [address], [place], [address], 11/19/2024 14:28:02 11/19/19 25 11/18/2024 CBC W/DIF F RDW 19.1 % 11.0-1 5.0 high Not Available [facility] (Lab) [address], [place], [address], 11/19/2024 14:28:02 11/19/19 25 11/18/2024 CBC W/DIF F plt 545 10'3/ uL 150-40 0 high Not Available [facility] (Lab) [address], [place], [address], 11/19/2024 14:28:02 11/19/19 25 11/18/2024 CBC W/DIF F MPV 9.3 fL 8.8-12 .1 Not Available [facility] (Lab) [address], [place], [address], 11/19/2024 14:28:02 11/19/19 25 11/18/2024 CBC W/DIF F NRBC's 0.0 % 0.0 Not Available [facility] (Lab) [address], [place], [address], 11/19/2024 14:28:02 11/19/19 25 11/18/2024 CBC W/DIF F absolute NRBCs 0.0 10'3/ uL no refere nce range establ ished Not Available [facility] (Lab) [address], [place], [address], 11/19/2024 14:28:02 11/19/19 25 11/18/2024 CBC W/DIF F neutrophils 62.3 % 34.0-7 3.0 Not Available [facility] (Lab) [address], [place], [address], 11/19/2024 14:28:02 11/19/19 25 11/18/2024 CBC W/DIF F lymphocytes 29.6 % 15.0-5 0.0 Not Available [facility] (Lab) [address], [place], [address], 11/19/2024 14:28:02 11/19/19 25 11/18/2024 CBC W/DIF F monocytes 6.7 % 1.0-15 .0 Not Available [facility] (Lab) [address], [place], [address], 11/19/2024 14:28:02 11/19/19 25 11/18/2024 CBC W/DIF F eosinophils 0.4 % 0.0-8. 0 Not Available [facility] (Lab) [address] [place], [address], 11/19/2024 14:28:02 11/19/19 25 11/18/2024 CBC W/DIF F basophils 0.7 % 0.0-2. 0 Not Available [facility] (Lab) [address], [place], [address], 11/19/2024 14:28:02 11/19/19 25 11/18/2024 CBC W/DIF [...] separ ately if prese nt. Not Available [facility] (Lab) [address], [place], [address], 11/19/2024 14:28:02 11/19/19 25 11/18/2024 CBC W/DIF F absolute neutrophils 4.8 10'3/ uL 1.5-8. 0 Not Available [facility] (Lab) [address], [place], [address], 11/19/2024 14:28:02 11/19/19 25 11/18/2024 CBC W/DIF F absolute lymphocytes 2.3 10'3/ uL 1.0-4. 0 Not Available [facility] (Lab) [address], [place], [address], 11/19/2024 14:28:02 11/19/19 25 11/18/2024 CBC W/DIF F absolute monocytes 0.5 10'3/ uL 0.2-1. 0 Not Available [facility] (Lab) [address], [place], [address], 11/19/2024 14:28:02 11/19/19 25 11/18/2024 CBC W/DIF F absolute eosinophils 0.0 10'3/ uL 0.0-0. 6 Not Available [facility] (Lab) [address], [place], [address], 11/19/2024 14:28:02 11/19/19 25 11/18/2024 CBC W/DIF F absolute basophils 0.1 10'3/ uL 0.0-0. 3 Not Available [facility] (Lab) [address], [place], [address], 11/19/2024 14:28:02 11/19/19 25 11/18/2024 CBC W/DIF F absolute immature granulocytes 0.0 10'3/ uL 0.00-0 .10 Refer ence range s for nonbi nary/ inter sex or unspe cifie d gende r patie nts have not been estab lishe d. Pleas e refer to the follo wing table for range s estab lishe d for cisge nder patie nts and evalu ate in the clini santy [place] xt of the indiv idual patie nt: https ://la rony book. nm.or g/gen derx Not Available [facility] (Lab) [address], [place], [address], 11/19/2024 14:28:02 11/19/19 25 11/18/2024 FSH, LH, ESTRA DIOL estradiol 397.0 pg/mL This assay was perfo rmed using [employer] ratio n reage nts and test kits. Value s obtai sammy with other assay metho ds or kits canno t be used inter de [place]ant[place] eably . Femal e Estra diol Range s: Folli cular phase 12.4- 233 pg/mL Ovula tion phase 41.0- 398 pg/mL Lutea l phase 22.3- 341 pg/mL Postm enopa usal <5-13 8 pg/mL Healt hy Pregn ant Women 1st Trime ster 154-3 243 pg/mL 2nd Trime ster 1561- 94319 pg/mL 3rd Trime ster 8525- >3000 0 pg/mL Not Available [facility] (Lab) [address], [place], [address], 11/19/2024 14:28:03 11/19/19 25 11/18/2024 FSH, LH, ESTRA DIOL FSH 7.3 mIU/m L This assay was perfo rmed using [employer] n reage nts and test kits. Value s obtai sammy with other assay metho ds or kits canno t be used inter [facility] . Femal es Folli cular : 3.5-1 2.5 mIU/m L Ovula tion: 4.7-2 1.5 mIU/m L Lutea l: 1.7-7 .7 mIU/m L Postm enopa use: 25.8- 134.8 mIU/m L Not Available [facility] (Lab) [address] , [place], [address], 11/19/2024 14:28:03 11/19/19 25 11/18/2024 FSH, LH, ESTRA DIOL LH 27.6 mIU/m L This assay was perfo rmed using [employer] n reage nts and test kits. Value s obtai sammy with other assay metho ds or kits canno t be used inter [facility] . Femal es Mid-F ollic ular: 2.4-1 2.6 mIU/m L Mid-C ycle: 14.0- 95.6 mIU/m L Mid-L uteal : 1.0-1 1.4 mIU/m L Postm enopa use: 7.7-5 8.5 mIU/m L Not Available [facility] (Lab) [address] , [place], [address], 11/19/2024 14:28:03 11/19/19 25 11/18/2024 TSH, REFLE X FREE T4 TSH 0.64 uIU/m L 0.30-5 .33 Not Available [facility] (Lab) [address], [place], [address], 11/19/2024 14:28:03 11/19/19 25 11/18/2024 LIPID PANEL ,AMA (LDL- CALC) total cholesterol 171 mg/dL 0-199 Not Available [facility] (Lab) [address], [place], [address], 11/19/2024 14:28:03 11/19/1911/18/2024 LIPID PANEL ,AMA (LDL- CALC) triglyceride s 81 mg/dL 0-150 NCEP Refer ence Value s for Trigl yceri mejia: Maria Fernanda l: <150 mg/dL Borde rline High: 150 - 199 mg/dL High: 200 - 499 mg/dL Very High: >/= 500 mg/dL Not Available [facility] (Lab) [address] [place], [address], 11/19/2024 14:28:03 11/19/1911/18/2024 LIPID PANEL ,AMA (LDL- CALC) HDL cholesterol 53 mg/dL >40 Not Available [facility] (Lab) [address], [place], [address], 11/19/2024 14:28:03 11/19/19 25 11/18/2024 LIPID PANEL ,AMA (LDL- CALC) LDL cholesterol [...] mg/dL , HDL <40 mg/dL Not Available [facility] (Lab) [address] [place], [address], 11/19/2024 14:28:03 11/19/19 25 11/18/2024 LIPID PANEL ,AMA (LDL- CALC) non-HDL cholesterol 118 mg/dL no refere nce range A reaso nable goal for non-H DL luisa stero l is one that is 30 mg/dL highe r than the LDL luisa stero l goal. Not Available [facility] (Lab) [address], [place], [address], 11/19/2024 14:28:03 11/19/1911/18/2024 LIPID PANEL ,AMA (LDL- CALC) chol/HDL ratio 3.2 . 0.0-5. 0 On June 21, 2022, [facility] labor atori lorraine de los santos ed the equat ion for calcu latin g estim ated low-d ensit y lipop rotei n-cho leste rol (LDL- C) from the Fried marlo equat ion to the Ivonne n/Hop kins equat ion. This new equat ion is only valid for lipid panel s with trigl yceri mejia < 400 mg/dL . Studi es have demon strat ed that this new equat ion will impro ve the accur acy of LDL-C , espec ially in scena garcia when LDL-C carrie ntrat ions are relat ively low (< 100 mg/dL ), trigl yceri mejia are eleva scott, or patie nt is non-f astin g. Refer ences : - Ivonne piña, Agapito Don, Roberth Srivastava , [facility] [place] elena par[place], Rich Morales, Rich whiteside, Tam Salguero. Key bal , and Sylvester Harding . 2013. Comp ariso n of a Novel Metho d vs the Fried marlo Equat ion for Estim ating Low-D ensit y Lipop rotei n Luisa stero l Level s from the Stand jane Lipid Profi le. JESSIKA: The Journ al of the Ameri can Medic al Assoc iatio n 310 (19): 2060- . - Edwardo patel V, Giselle J, Aris ar A, Jaciel M, Timur e R, Janet patel E, Key bal RS, Mehdi SR, Ivonne piña SS. Fast ing Versu s Nonfa sting and Low-D ensit y Lipop rotei n Luisa stero l Accur acy. Circu jason n. 2017Feb 28;137 (1):1 0-19. Not Available [facility] (Lab) [address], [place], [address], 11/19/2024 14:28:03 11/19/19 25 11/18/2024 CMP(C OMPRE HENSI VE METAB OLIC PANEL ) sodium 138 mmol/ L 133-14 6 Not Available [facility] (Lab) [address], [place], [address], 11/19/2024 14:28:04 11/19/19 25 11/18/2024 CMP(C OMPRE HENSI VE METAB OLIC PANEL ) potassium 4.4 mmol/ L 3.5-5. 1 Not Available [facility] (Lab) [address], [place], [address], 11/19/2024 14:28:04 11/19/19 25 11/18/2024 CMP(C OMPRE HENSI VE METAB OLIC PANEL ) chloride 105 mmol/ L 98-107 Not Available [facility] (Lab) [address], [place], [address], 11/19/2024 14:28:04 11/19/19 25 11/18/2024 CMP(C OMPRE HENSI VE METAB OLIC PANEL ) carbon dioxide 26 mmol/ L 21-31 Not Available [facility] (Lab) [address], [place], [address], 11/19/2024 14:28:04 11/19/19 25 11/18/2024 CMP(C OMPRE HENSI VE METAB OLIC PANEL ) anion gap 7 mmol/ L 4-13 Not Available [facility] (Lab) [address], [place], [address], 11/19/2024 14:28:04 11/19/19 25 11/18/2024 CMP(C OMPRE HENSI VE METAB OLIC PANEL ) blood urea nitrogen 10 mg/dL 7-25 Not Available [facility] (Lab) [address], [place], [address], 11/19/2024 14:28:04 11/19/19 25 11/18/2024 CMP(C OMPRE HENSI VE METAB OLIC PANEL ) creatinine 0.87 mg/dL 0.60-1 .30 Not Available [facility] (Lab) [address], [place], [address], 11/19/2024 14:28:04 11/19/19 25 11/18/2024 CMP(C OMPRE HENSI VE METAB OLIC PANEL ) egfrcr (CKD-epi 2020) 86 mL/mi n/1.7 3_m2 >=60 Not Available [facility] (Lab) [address], [place], [address], 11/19/2024 14:28:04 11/19/19 25 11/18/2024 CMP(C OMPRE HENSI VE METAB OLIC PANEL ) calcium 10.8 mg/dL 8.3-10 .5 high Not Available [facility] (Lab) [address], [place], [address], 11/19/2024 14:28:04 11/19/19 25 11/18/2024 CMP(C OMPRE HENSI VE METAB OLIC PANEL ) glucose 91 mg/dL 70-100 Not Available [facility] (Lab) [address], [place], [address], 11/19/2024 14:28:04 11/19/19 25 11/18/2024 CMP(C OMPRE HENSI VE METAB OLIC PANEL ) protein, total 7.4 g/dL 6.4-8. 3 Not Available [facility] (Lab) [address], [place], [address], 11/19/2024 14:28:04 11/19/19 25 11/18/2024 CMP(C OMPRE HENSI VE METAB OLIC PANEL ) albumin 4.2 g/dL 3.5-5. 0 Not Available [facility] (Lab) [address], [place], [address], 11/19/2024 14:28:04 11/19/19 25 11/18/2024 CMP(C OMPRE HENSI VE METAB OLIC PANEL ) ALT 6 units /L 9-43 low Not Available [facility] (Lab) [address], [place], [address], 11/19/2024 14:28:04 11/19/19 25 11/18/2024 CMP(C OMPRE HENSI VE METAB OLIC PANEL ) alkaline phosphatase 78 units /L 34-104 Not Available [facility] (Lab) [address], [place], [address], 11/19/2024 14:28:04 11/19/19 25 11/18/2024 CMP(C OMPRE HENSI VE METAB OLIC PANEL ) AST 15 units /L 13-39 Not Available [facility] (Lab) [address], [place], [address], 11/19/2024 14:28:04 11/19/19 25 11/18/2024 CMP(C OMPRE HENSI VE METAB OLIC PANEL ) bilirubin, total 0.2 mg/dL 0.2-1. 2 Not Available [facility] (Lab) [address], [place], [address], 11/19/2024 14:28:04 11/19/19 25 11/18/2024 HEMOG LOBIN A1C hemoglobin A1C 5.4 % 4.0-5. 6 The Ameri can Diabe amos Assoc iatio n recom mends that a prima ry goal of thera py dasia owusu be a HBA1C of < 7% and that physi cians dasia d reeva luate the treat ment regim en in patie nts with HBA1C value s consi stent ly > 8%. <5.7% Maria Fernanda l 5.7 - 6.4% Incre ased risk for diabe amos >=6.5 % Diagn ostic of diabe amos <7.0% Goal of thera py >8.0% Actio n sulema stefrancoise Not Available [facility] (Lab) [address], [place], [address], 11/19/2024 14:28:04 11/19/19 25 11/18/2024 US, pelvi s No observ ation record ed. [email or web address] [place] [address], [place], [address], 11/18/2024 18:27:33 11/19/19 25 11/18/2024 US, trans vagin al No observ ation record ed. [email or web address] [place] [address], [place], [address], 11/18/2024 18:27:42 11/19/19 25 11/18/2024 US, pelvi s No observ ation record ed. [email or web address] [address], [place], [address], 11/18/2024 16:25:26 Result Notes None recorded. Procedures Surgical History Date Name Laterality Status Provider Name and Address Organization Details Recorded Time 11/14/2024 Date of Last Pap Smear completed Sabina Gambino [facility] 01/09/2025 14:58:56 Imaging Results None recorded. Procedure Notes None recorded. Medical Equipment None Reported. Allergies Allergen ID Allergen Name Allergen Category Reaction Reaction Severity Criticality Documentation Date Start Date Code Code System Note Provider Name and Address Organization Details Recorded Time 07862 Unable to Assess Not available eye swelling severe Not available 11/14/2024 Brittni carballo [facility] 5 11:59:52 72335 Meeta medicatio n Not available Not available Not available 11/14/2024 77320 6 RxNorm swell ing of eyes and throa t Brittni carballo [facility] 5 12:00:05 Medications Name Sig Start [...] Not Available Not Available Not Avai lable Vitals Date Recorded Body weight Body mass index (BMI) Body height Systolic And Diastolic Provider Name and Address Organization Details Last Updated DateTime 11/14/2024 92603.37 g 21.8 kg/m2 153.67 cm 128/82 mm[Hg] Brittni Rees [facility] 11/14/2024 11:57:30 Social History Question Answer Notes LastModified by Organizat ion Details LastModified Time Tobacco Smoking Status Current Every Day Smoker Brittni Rees [facility] 11/14/2024 12:06:09 Do You Have An Advance Directive? No [email or web address] Information not available 11/14/2024 Are You Blind Or Do You Have Difficulty Seeing? Yes Left Eye Issue [email or web address] Information not available 11/14/2024 What Is Your Level Of Caffeine Consumption? Moderate [email or web address] Information not available 11/14/2024 In The 14 Days Before Symptom Onset, Have You Had Close Contact With A Laboratory-confir med COVID-19 While That Case Was Ill? No [email or web address] Information not available 11/14/2024 In The 14 Days Before Symptom Onset, Have You Had Close Contact With A Person Who Is Under Investigation For COVID-19 While That Person Was Ill? No [email or web address] Information not available 11/14/2024 Have You Been To An Area Known To Be High Risk For COVID-19? No [email or web address] Information not available 11/14/2024 Are You Deaf Or Do You Have Serious Difficulty Hearing? 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 RO52277-5 [email or web address] Information not available 11/14/2024 Are There Any Guns Present In Your Home? No Information not available 11/14/2024 Do You Use Protection During Sex? No Information not available 11/14/2024 Do You Use Your Seat Belt Or Car Seat Routinely? Yes [email or web address] Information not available 11/14/2024 Are You Sexually Active? No [email or web address] Information not available 11/14/2024 Do You Have Smoke And Carbon Monoxide Detectors In Your Home? Yes [email or web address] Information not available 11/14/2024 How Much Tobacco Do You Smoke? No [email or web address] Information not available 11/14/2024 Do You Use Sunscreen Routinely? No [email or web address] Information not available 11/14/2024 Have You Used IV Drugs? No [email or web address] Information not available 11/14/2024 Do You Have Difficulty Walking Or Climbing Stairs? No [email or web address] Information not available 11/14/2024 Sex: Unknown Functional Status Question Answer Note LastModified by Organizat ion Details LastModified Time Do you use any illicit or recreational drugs? No [email or web address] Information not available 11/14/2024 What is your level of alcohol consumption? None [email or web address] Information not available 11/14/2024 Are you currently employed? Yes [email or web address] Information not available 11/14/2024 Are you able to walk independently without assistance or assistive devices? [email or web address] Information not available 11/14/2024 Are you able to care for yourself independently? 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 No [email or web address] Information not available 11/14/2024 What is your exercise level? None [email or web address] Information not available 11/14/2024 Mental Status Question Answer Note LastModified by Organization D etails LastModified Time Do you feel stressed (tense, restless, nervous, or anxious, or unable to sleep at night)? [id number] [email or web address] Information not available 11/14/2024 Family History Relationship Description Onset Age of this Age Resolved Age Notes LastModified by Organization Details LastModified Time Mother Schizophreni a [email or web address] Not available 2024 12:05:21 Mother Bipolar disorder [email or web address] Not available 2024 12:05:28 Mother Epilepsy [email or web address] Not availabl e 11/14/2024 12:05:36 Mother Malignant neoplasm of skin [email or web address] Not available 2024 12:05:44 Medical History Condition Response Allergies (Food, seasonal, environmental ) N Other N Breast Cancer N Drug/Latex Allergies/Reactions N Blood Transfusion N Dermatologic Disorders N [...] Neurologic/Epilepsy N Endometriosis N High Cholesterol N Headaches N Fibromyalgia N Kidney Disease N Heart Problems N Kidney or Bladder Problems N Thyroid Problems N GI Problems N Eating Disorder [...] ICD10 Code Diagnosis IMO Codes Diagnosis Note [id number] NYLA CALHOUN NP [facility] [address] [address] 11/14/2024 11:38:30 11/14/2024 14:17:02 Routine gynecologic examination [id number] Z01.419 [id number] Annual gynecologi santy exam performed. Patient will come back in [...] STI testing - requested Screening mammography 24 438177 Z12.31 [id number] Menopausal symptom 05168 002 N95.1 [id number] Reviewed self-help strategies (dietary changes/ex ercise/acu puncture/e tc.), herbal and other OTC therapies, hormonal options as well as other medication s used to treat common menopausal symptoms.W ill order labs to assess for samira-menop ause and r/o other causes of samira-menop ausal sx. Venereal d isease screening [id number] Z11.3 [id number] Pt requested STI testing.Di scussed the various types of STDs, related symptoms and the potential consequenc es (including effects on fertility) of STD infections . Reviewed ways to limit exposure and prevention techniques . Menorrhagia [id number] N9 2.0 9031240 -Chronic dysmenorrh ea and heavy periods-Hx uterine [...] evaluation with subsequent treatment/ surgical consult with MD; patient desires hysterecto my. Health Concerns Section Related Observation LastModified by Organization Detai ls LastModified Time None Recorded Concern Status LastModified by Organization Details LastModified Time None Recorded Payers Encounter Date Sequence Insurance Name Policy Number Policy [place] Covered Member ID [place] Member ID Guarantor Name 11/14/2024 1 [employer] [id number] Elin Arce [id number] Elin Arce Notes Date Note Type [...] and night sweats over the past year. NYLA CALHOUN NP [address], [place], [address], [facility] 11/14/2024 13:48:07 OBGyn Episode No OBEpisode recorded.
--- OUTSIDE RECORDS SUMMARY | 2025-01-15 05:25 | XMS_ITS | Continuity of Care Document ---
Author Organization [facility] Address [address] [place] [address] Assessment No assessment recorded. Plan of Treatment Reminders Order Date Submit Date Provider Last Modified By Organization Details Last Modified Time Details Appointments Robotic TLH 2024 10:30A Thelma WILLIS MD Not available Not available Not available SURG POST OP 2024 01:15P Thelma WILLIS MD Not available Not available Not available Lab None recorded. Referral None recorded. Procedures None recorded. Surgeries robotic assisted hysterect imtiaz with salpingec john (SURG) 2024 025 API-830 [facility], [address], [address], 11/25/2024 15:38:40 Imaging None recorded. Medication Orders None recorded. Patient TargetsNo targets [...] t Case: [id number] Autho sandie ftaima Provi efren: Dermo otto, Tha , ANP, [employer] Colle cted: 11/14 1434 Order ing Locat ion: [place] Patho [facility] Recei lulu: 11/15 0105 First Scree n: Aruna Harding ay, CT Rescr een: Anna Pérez, CT Speci men: Yariel perry Pap - Image d, Cervi x STATE MENT OF ADEQU ACY: Satis facto ry for evalu ation Trans forma tion zone compo era solarese nt ----- ----- ----- ----- ----- ----- ----- ----- ----- ----- ----- ----- ----- ----- ----- ----- ----- ---- FINAL DIAGN OSIS: Negat yamila for Intra epith elial Lesio n or Davi mckenzie ([facility]) . Trich omona s vagin rodrigo prese [...] graciela and/o r histo rical findi ngs, furth er inves tigat ion is recom leeann d, as clini bjorn warra nted. Not Available [facility] (Lab) [address], [place], [address], 11/19/2024 13:34:52 11/19/19 25 11/18/2024 CBC W/DIF F WBC 7.6 10'3/ uL 3.5-10 .5 Not Available [facility] (Lab) [address] [place], [address], 11/19/2024 14:28:02 11/19/19 25 11/18/2024 CBC W/DIF F RBC 3.71 10'6/ uL (based on docume nted legal sex) 3.80-5 .20 low Not Available [facility] (Lab) [address] [place], [address], 11/19/2024 14:28:02 11/19/19 25 11/18/2024 CBC W/DIF F HGB 7.6 g/dL (based on docume nted legal sex) 11.6-1 5.4 low Not Available [facility] (Lab) [address] [place], [address], 11/19/2024 14:28:02 11/19/19 25 11/18/2024 CBC W/DIF F HCT 27.7 % (based on docume nted legal sex) 34.0-4 5.0 low Not Available [facility] (Lab) [address], [place], [address], 11/19/2024 14:28:02 11/19/19 25 11/18/2024 CBC W/DIF F MCV 74.7 fL 80.0-9 9.0 low Not Available [facility] (Lab) [address], [place], [address], 11/19/2024 14:28:02 11/19/19 25 11/18/2024 CBC W/DIF F MCH 20.5 pg 27.0-3 4.0 low Not Available [facility] (Lab) [address], [place], [address], 11/19/2024 14:28:02 11/19/19 25 11/18/2024 CBC W/DIF F MCHC 27.4 g/dL 32.0-3 5.5 low Not Available [facility] (Lab) [address], [place], [address], 11/19/2024 14:28:02 11/19/19 25 11/18/2024 CBC W/DIF F RDW 19.1 % 11.0-1 5.0 high Not Available [facility] (Lab) [address], [place], [address], 11/19/2024 14:28:02 11/19/19 25 11/18/2024 CBC W/DIF F plt 545 10'3/ uL 150-40 0 high Not Available [facility] (Lab) [address], [place], [address], 11/19/2024 14:28:02 11/19/19 25 11/18/2024 CBC W/DIF F MPV 9.3 fL 8.8-12 .1 Not Available [facility] (Lab) [address], [place], [address], 11/19/2024 14:28:02 11/19/19 25 11/18/2024 CBC W/DIF F NRBC's 0.0 % 0.0 Not Available [facility] (Lab) [address], [place], [address], 11/19/2024 14:28:02 11/19/19 25 11/18/2024 CBC W/DIF F absolute NRBCs 0.0 10'3/ uL no refere nce range establ ished Not Available [facility] (Lab) [address], [place], [address], 11/19/2024 14:28:02 11/19/19 25 11/18/2024 CBC W/DIF F neutrophils 62.3 % 34.0-7 3.0 Not Available [facility] (Lab) [address], [place], [address], 11/19/2024 14:28:02 11/19/19 25 11/18/2024 CBC W/DIF F lymphocytes 29.6 % 15.0-5 0.0 Not Available [facility] (Lab) [address], [place], [address], 11/19/2024 14:28:02 11/19/19 25 11/18/2024 CBC W/DIF F monocytes 6.7 % 1.0-15 .0 Not Available [facility] (Lab) [address], [place], [address], 11/19/2024 14:28:02 11/19/19 25 11/18/2024 CBC W/DIF F eosinophils 0.4 % 0.0-8. 0 Not Available [facility] (Lab) [address], [place], [address], 11/19/2024 14:28:02 11/19/19 25 11/18/2024 CBC W/DIF F basophils 0.7 % 0.0-2. 0 Not Available [facility] (Lab) [address], [place], [address], 11/19/2024 14:28:02 11/19/19 25 11/18/2024 CBC W/DIF [...] separ ately if prese nt. Not Available [facility] (Lab) [address], [place], [address], 11/19/2024 14:28:02 11/19/19 25 11/18/2024 CBC W/DIF F absolute neutrophils 4.8 10'3/ uL 1.5-8. 0 Not Available [facility] (Lab) [address], [place], [address], 11/19/2024 14:28:02 11/19/19 25 11/18/2024 CBC W/DIF F absolute lymphocytes 2.3 10'3/ uL 1.0-4. 0 Not Available [facility] (Lab) [address], [place], [address], 11/19/2024 14:28:02 11/19/19 25 11/18/2024 CBC W/DIF F absolute monocytes 0.5 10'3/ uL 0.2-1. 0 Not Available [facility] (Lab) [address], [place], [address], 11/19/2024 14:28:02 11/19/19 25 11/18/2024 CBC W/DIF F absolute eosinophils 0.0 10'3/ uL 0.0-0. 6 Not Available [facility] (Lab) [address], [place], [address], 11/19/2024 14:28:02 11/19/19 25 11/18/2024 CBC W/DIF F absolute basophils 0.1 10'3/ uL 0.0-0. 3 Not Available [facility] (Lab) [address], [place], [address], 11/19/2024 14:28:02 11/19/19 25 11/18/2024 CBC W/DIF [...] the indiv idual patie nt: https ://la and book. nm.or g/gen derx Not Available [facility] (Lab) [address], [place], [address], 11/19/2024 14:28:02 11/19/19 25 11/18/2024 FSH, LH, [...] 154-3 243 pg/mL 2nd Trime ster 1561- 75927 pg/mL 3rd Trime ster 8525- >3000 0 pg/mL Not Available [facility] (Lab) [address], [place], [address], 11/19/2024 14:28:03 11/19/19 25 11/18/2024 FSH, LH, ESTRA DIOL FSH 7.3 mIU/m L This assay was perfo rmed using [employer] ratio n reage nts and test kits. Value s obtai sammy with other assay metho ds or kits canno t be used inter [facility] . Femal es Folli cular : 3.5-1 2.5 mIU/m L Ovula tion: 4.7-2 1.5 mIU/m L Lutea l: 1.7-7 .7 mIU/m L Postm enopa use: 25.8- 134.8 mIU/m L Not Available [facility] (Lab) [address], [place], [address], 11/19/2024 14:28:03 11/19/19 25 11/18/2024 FSH, LH, ESTRA DIOL LH 27.6 mIU/m L This assay was perfo rmed using [employer] reage nts and test kits. Value s obtai sammy with other assay metho ds or kits canno t be used inter [facility] . Femal es Mid-F ollic ular: 2.4-1 2.6 mIU/m L Mid-C ycle: 14.0- 95.6 mIU/m L Mid-L uteal : 1.0-1 1.4 mIU/m L Postm enopa use: 7.7-5 8.5 mIU/m L Not Available [facility] (Lab) [address], [place], [address], 11/19/2024 14:28:03 11/19/19 25 11/18/2024 TSH, REFLE X FREE T4 TSH 0.64 uIU/m L 0.30-5 .33 Not Available [facility] (Lab) [address], [place], [address], 11/19/2024 14:28:03 11/19/19 25 11/18/2024 LIPID PANEL ,AMA (LDL- CALC) total cholesterol 171 mg/dL 0-199 Not Available [facility] (Lab) [address], [place], [address], 11/19/2024 14:28:03 11/19/1911/18/2024 LIPID PANEL ,AMA (LDL- CALC) triglyceride s 81 mg/dL 0-150 NCEP Refer ence Value s for Trigl yceri mejia: Maria Fernanda l: <150 mg/dL Borde rline High: 150 - 199 mg/dL High: 200 - 499 mg/dL Very High: >/= 500 mg/dL Not Available [facility] (Lab) [address], [place], [address], 11/19/2024 14:28:03 11/19/1911/18/2024 LIPID PANEL ,AMA (LDL- CALC) HDL cholesterol 53 mg/dL >40 Not Available [facility] (Lab) [address], [place], [address], 11/19/2024 14:28:03 11/19/19 25 11/18/2024 LIPID PANEL [...] mg/dL , HDL <40 mg/dL Not Available [facility] (Lab) [address], [place], [address], 11/19/2024 14:28:03 11/19/19 25 11/18/2024 LIPID PANEL ,AMA (LDL- CALC) non-HDL cholesterol 118 mg/dL no refere nce range A reaso nable goal for non-H DL luisa stero l is one that is 30 mg/dL highe r than the LDL luisa stero l goal. Not Available [facility] (Lab) [address], [place], [address], 11/19/2024 14:28:03 11/19/1911/18/2024 LIPID PANEL ,AMA (LDL- CALC) chol/HDL ratio 3.2 . 0.0-5. 0 On June 21, 2022, [facility] labor atori lorraine de los santos ed the equat ion for calcu harvinder g estim ated low-d ensit y lipop rotei n-cho leste rol (LDL- C) from the Fried marlo equat ion to the Ivonne n/Hop ivis equat ion. This new equat ion is [...] Agapito Don, Roberth Srivastava , [facility] [place] [place] par[place], Rich Morales, Tam Giron. Key bal , and Sylvester Harding . [...] n. 2017Feb 28;137 (1):1 0-19. Not Available [facility] (Lab) [address], [place], [address], 11/19/2024 14:28:03 11/19/19 25 11/18/2024 CMP(C OMPRE HENSI VE METAB OLIC PANEL ) sodium 138 mmol/ L 133-14 6 Not Available [facility] (Lab) [address], [place], [address], 11/19/2024 14:28:04 11/19/19 25 11/18/2024 CMP(C OMPRE HENSI VE METAB OLIC PANEL ) potassium 4.4 mmol/ L 3.5-5. 1 Not Available [facility] (Lab) [address], [place], [address], 11/19/2024 14:28:04 11/19/19 25 11/18/2024 CMP(C OMPRE HENSI VE METAB OLIC PANEL ) chloride 105 mmol/ L 98-107 Not Available [facility] (Lab) [address], [place], [address], 11/19/2024 14:28:04 11/19/19 25 11/18/2024 CMP(C OMPRE HENSI VE METAB OLIC PANEL ) carbon dioxide 26 mmol/ L 21-31 Not Available [facility] (Lab) [address], [place], [address], 11/19/2024 14:28:04 11/19/19 25 11/18/2024 CMP(C OMPRE HENSI VE METAB OLIC PANEL ) anion gap 7 mmol/ L 4-13 Not Available [facility] (Lab) [address], [place], [address], 11/19/2024 14:28:04 11/19/19 25 11/18/2024 CMP(C OMPRE HENSI VE METAB OLIC PANEL ) blood urea nitrogen 10 mg/dL 7-25 Not Available [facility] (Lab) [address], [place], [address], 11/19/2024 14:28:04 11/19/19 25 11/18/2024 CMP(C OMPRE HENSI VE METAB OLIC PANEL ) creatinine 0.87 mg/dL 0.60-1 .30 Not Available [facility] (Lab) [address], [place], [address], 11/19/2024 14:28:04 11/19/19 25 11/18/2024 CMP(C OMPRE HENSI VE METAB OLIC PANEL ) egfrcr (CKD-epi 2020) 86 mL/mi n/1.7 3_m2 >=60 Not Available [facility] (Lab) [address], [place], [address], 11/19/2024 14:28:04 11/19/19 25 11/18/2024 CMP(C OMPRE HENSI VE METAB OLIC PANEL ) calcium 10.8 mg/dL 8.3-10 .5 high Not Available [facility] (Lab) [address], [place], [address], 11/19/2024 14:28:04 11/19/19 25 11/18/2024 CMP(C OMPRE HENSI VE METAB OLIC PANEL ) glucose 91 mg/dL 70-100 Not Available [facility] (Lab) [address], [place], [address], 11/19/2024 14:28:04 11/19/19 25 11/18/2024 CMP(C OMPRE HENSI VE METAB OLIC PANEL ) protein, total 7.4 g/dL 6.4-8. 3 Not Available [facility] (Lab) [address], [place], [address], 11/19/2024 14:28:04 11/19/19 25 11/18/2024 CMP(C OMPRE HENSI VE METAB OLIC PANEL ) albumin 4.2 g/dL 3.5-5. 0 Not Available [facility] (Lab) [address], [place], [address], 11/19/2024 14:28:04 11/19/19 25 11/18/2024 CMP(C OMPRE HENSI VE METAB OLIC PANEL ) ALT 6 units /L 9-43 low Not Available [facility] (Lab) [address], [place], [address], 11/19/2024 14:28:04 11/19/19 25 11/18/2024 CMP(C OMPRE HENSI VE METAB OLIC PANEL ) alkaline phosphatase 78 units /L 34-104 Not Available [facility] (Lab) [address], [place], [address], 11/19/2024 14:28:04 11/19/19 25 11/18/2024 CMP(C OMPRE HENSI VE METAB OLIC PANEL ) AST 15 units /L 13-39 Not Available [facility] (Lab) [address], [place], [address], 11/19/2024 14:28:04 11/19/19 25 11/18/2024 CMP(C OMPRE HENSI VE METAB OLIC PANEL ) bilirubin, total 0.2 mg/dL 0.2-1. 2 Not Available [facility] (Lab) [address], [place], [address], 11/19/2024 14:28:04 11/19/1911/18/2024 HEMOG LOBIN A1C hemoglobin A1C 5.4 % [...] of thera py >8.0% Actio n sulema sted Not Available [facility] (Lab) [address], [place], [address], 11/19/2024 14:28:04 11/19/1911/18/2024 US, pelvi s No observ ation record ed. [email or web address] [place] [address], [place], [address], 11/18/2024 18:27:33 11/19/19 25 11/18/2024 US, trans vagin al No observ ation record ed. [email or web address] [place] [address], [place], [address], 11/18/2024 18:27:42 11/19/19 25 11/18/2024 US, pelvi s No observ ation record ed. [email or web address] [address] [place] [address], [place], [address], 11/18/2024 16:25:26 Result Notes None recorded. Procedures Surgical History Date Name Laterality Status Provider Name and Address Organization Details Recorded Time 11/14/2024 Date of Last Pap Smear completed Sabina Gambino [facility] 01/09/2025 14:58:56 Imaging Results None recorded. Procedure Notes None recorded. Medical Equipment None Reported. Allergies Allergen ID Allergen Name Allergen Category Reaction Reaction Severity Criticality Documentation Date Start Date Code Code System Note Provider Name and Address Organization Details Recorded Time 74983 Unable to Assess Not available eye swelling severe Not available 11/14/[address] [facility] 5 11:59:52 49191 Meeta medicatio n Not available Not available Not available 11/14/2024 96196 6 RxNorm swell ing of eyes and throa t Brittni carballo [facility] 5 12:00:05 Medications Name Sig [...] Not Avai lable Vitals Date Recorded Body height Body mass index (BMI) Body weight Systolic And Diastolic Provider Name and Address Organization Details Last Updated DateTime 11/23/2024 153.67 cm 21.7 kg/m2 86329.66 g 121/77 mm[Hg] [facility] 11/23/2024 11:42:22 Social History Question Answer Notes LastModified by Organizat ion Details LastModified Time Tobacco Smoking Status Current Every Day [facility] 11/14/2024 12:06:09 Do You Have An Advance Directive? No [email or web address] Information not available 11/14/2024 Are You Blind Or Do You Have Difficulty Seeing? Yes Left Eye Issue [email or web address] Information not available 11/14/2024 What Is Your Level Of Caffeine Consumption? Moderate Information not available 11/14/2024 In The 14 Days Before Symptom Onset, Have You Had Close Contact With A Laboratory-confir med COVID-19 While That Case Was Ill? No [email or web address] Information not available 11/14/2024 In The 14 Days Before Symptom Onset, Have You Had Close Contact With A Person Who Is Under Investigation For COVID-19 While That Person Was Ill? No [email or web address] Information not available 11/14/2024 Have You Been To An Area Known To Be High Risk For COVID-19? No [email or web address] Information not available 11/14/2024 Are You Deaf Or Do You Have Serious Difficulty Hearing? 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 [id number] [email or web address] Information not available 11/14/2024 Are There Any Guns Present In Your Home? No [email or web address] Information not available 11/14/2024 Do You Use Protection During Sex? No [email or web address] Information not available 11/14/2024 Do You Use Your Seat Belt Or Car Seat Routinely? Yes [email or web address] Information not available 11/14/2024 Are You Sexually Active? No [email or web address] Information not available 11/14/2024 Do You Have Smoke And Carbon Monoxide Detectors In Your Home? Yes Information not available 11/14/2024 How Much Tobacco Do You Smoke? No Information not available 11/14/2024 Do You Use Sunscreen Routinely? No Information not available 11/14/2024 Have You Used IV Drugs? No [email or web address] Information not available 11/14/2024 Do You Have Difficulty Walking Or Climbing Stairs? No [email or web address] Information not available 11/14/2024 Sex: Unknown Functional Status Question Answer Note LastModified by Organizat ion Details LastModified Time Do you use any illicit or recreational drugs? No [email or web address] Information not available 11/14/2024 What is your level of alcohol consumption? None [email or web address] Information not available 11/14/2024 Are you currently employed? Yes [email or web address] Information not available 11/14/2024 Are you able to walk independently without assistance or assistive devices? YESWOREST [email or web address] Information not available 11/14/2024 Are you able to care for yourself independently? 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 No [email or web address] Information not available 11/14/2024 What is your exercise level? None [email or web address] Information not available 11/14/2024 Mental Status Question Answer Note LastModified by Organization D etails LastModified Time Do you feel stressed (tense, restless, nervous, or anxious, or unable to sleep at night)? [id number] [email or web address] Information not available 11/14/2024 Family History Relationship Description Onset Age of this Age Resolved Age Notes LastModified by Organization Details LastModified Time Mother Schizophreni a [email or web address] Not available 2024 12:05:21 Mother Bipolar disorder [email or web address] Not available 2024 12:05:28 Mother Epilepsy [email or web address] Not availabl e 11/14/2024 12:05:36 Mother Malignant neoplasm of skin [email or web address] Not available 2024 12:05:44 Medical History Condition [...] ICD10 Code Diagnosis IMO Codes Diagnosis Note [id number] THA CALHOUN NP [place] [address] [address] 11/14/2024 11:38:30 11/14/2024 14:17:02 Routine gynecologic examination 590882159 Z01.419 [id number] Annual gynecologi graciela exam performed. Patient will [...] STI testing - requested Screening mammography 24 118605 Z12.31 [id number] Menopausal symptom 12979 002 N95.1 074232 Reviewed self-help strategies (dietary changes/ex ercise/acu puncture/e tc.), herbal and other OTC therapies, hormonal options as well as other medication s used to treat common menopausal symptoms.W ill order labs to assess for samira-menop ause and r/o other causes of samira-menop ausal sx. Venereal d isease screening 143309634 Z11.3 594546 Pt requested STI testing.Di scussed the various types of STDs, related symptoms and the potential consequenc es (including effects on fertility) of STD infections . Reviewed ways to limit exposure and prevention techniques . Menorrhagia 751795673 N9 2.0 1066879 -Chronic dysmenorrh ea and heavy periods-Hx uterine [...] consult with ; patient desires hysterecto my. [id number] Wilian Willis MD [place] [address] [address] 11/18/2024 11:25:42 11/18/2024 12:16:21 Menorrhagia 836637162 N92.0 N95.1 6974574 [id number] Wilian Willis MD [place] [address] [address] 11/23/2024 11:39:07 11/25/2024 10:37:31 Menorrhagia 400047916 N92.0 [id number] 39-year-ol d female with uterine myoma, menorrhagi [...] minutes on her care in total. Dysmenorrhea 167930357 N 94.6 30713 Uterine leiomyoma 427709 05 D25.9 [id number] Health Concerns Section Related Observation LastModified by Organization Detai ls LastModified Time None Recorded Concern Status LastModified by Organization Details LastModified Time None Recorded Payers Encounter Date Sequence Insurance Name Policy Number Policy [place] Covered Member ID [place] Member ID Guarantor Name 11/23/2024 1 [employer] [id number] Elin Arce [id number] Elin Arce Notes Date Note Type Note Provider Name and Address Organization Details Recorded Time 11/23/2024 text/html 39-year-old female with Uterine myoma, menorrhagia [...] total. Wilian Willis MD [address], [place], [address], [facility] 11/23/2024 14:20:52 OBGyn Episode No OBEpisode recorded.
--- OUTSIDE RECORDS SUMMARY | 2025-01-15 05:25 | XMS_ITS | Continuity of Care Document ---
Author Organization [facility] [place] Address [address] [place] [address] Assessment No assessment recorded. Plan of Treatment Reminders Order Date Submit Date Provider Last Modified By Organization Details Last Modified Time Details Appointments Robotic TLH 2024 10:30A Thelma AYERS MD Not available Not available Not available SURG POST OP 2024 01:15P Thelma AYERS MD Not available Not available Not available Lab None recorded. Referral None recorded. Procedures None recorded. Surgeries None recorded. Imaging None recorded. Medication Orders hydrocodo ne 10 mg-acetam inophen 325 mg/15 mL (15 mL) oral solution 2024 025 [facility] #[id number], [id number], [place], [address], 01/09/2025 15:27:11 Patient TargetsNo targets recorded. Patient InstructionsNo instructions recorded. Reason for Referral None Reported. Procedures Surgical History Date Name Laterality Status Provider Name and Address Organization Details Recorded Time 11/14/2024 Date of Last Pap Smear completed Sabina Gambino [facility] 01/09/2025 14:58:56 Imaging Results None recorded. Procedure Notes None recorded. Medical Equipment None Reported. Allergies Allergen ID Allergen Name Allergen Category Reaction Reaction Severity Criticality Documentation Date Start Date Code Code System Note Provider Name and Address Organization Details Recorded Time 12218 Unable to Assess Not available eye swelling severe Not available 11/14/2024 Brittni carballo [facility] 11:59:52 [id number] Meeta medicatio n Not available Not available Not available 11/14/2024 [id number] RxNorm swell ing of eyes and throa t Brittni Cowartton [facility] 12:00:05 Medications Name Sig Start Date Stop [...] Updated DateTime 01/09/2025 153.67 cm 20.6 kg/m2 74919.38 g 123/79 mm[Hg] Sabina Gambino [facility] 01/09/2025 14:58:25 Social History Question Answer Notes LastModified by Organizat ion Details LastModified Time Tobacco Smoking Status Current Every Day Smoker Brittni Cowartthomas carballo [facility] 11/14/2024 12:06:09 Do You Have An Advance Directive? No [email or web address] Information not available 11/14/2024 Are You Blind Or Do You Have Difficulty Seeing? Yes Left Eye Issue [email or web address] Information not available 11/14/2024 What Is Your Level Of Caffeine Consumption? Moderate Information not available 11/14/2024 In The 14 Days Before Symptom Onset, Have You Had Close Contact With A [facility] COVID-19 While That Case Was Ill? No Information not available 11/14/2024 In The 14 Days Before Symptom Onset, Have You Had Close Contact With A Person Who Is Under Investigation For COVID-19 While That Person Was Ill? No [email or web address] Information not available 11/14/2024 Have You Been To An Area Known To Be High Risk For COVID-19? No Information not available 11/14/2024 Are You Deaf Or Do You Have Serious Difficulty Hearing? 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 IE41256-4 [email or web address] Information not available 11/14/2024 Are There Any Guns Present In Your Home? No [email or web address] Information not available 11/14/2024 Do You Use Protection During Sex? No [email or web address] Information not available 11/14/2024 Do You Use Your Seat Belt Or Car Seat Routinely? Yes Information not available 11/14/2024 Are You Sexually Active? No Information not available 11/14/2024 Do You Have Smoke And Carbon Monoxide Detectors In Your Home? Yes [email or web address] Information not available 11/14/2024 How Much Tobacco Do You Smoke? No [email or web address] Information not available 11/14/2024 Do You Use Sunscreen Routinely? No [email or web address] Information not available 11/14/2024 Have You Used IV Drugs? No [email or web address] Information not available 11/14/2024 Do You Have Difficulty Walking Or Climbing Stairs? No [email or web address] Information not available 11/14/2024 Sex: Unknown Functional Status Question Answer Note LastModified by Organizat ion Details LastModified Time Do you use any illicit or recreational drugs? No [email or web address] Information not available 11/14/2024 What is your level of alcohol consumption? None [email or web address] Information not available 11/14/2024 Are you currently employed? Yes [email or web address] Information not available 11/14/2024 Are you able to walk independently without assistance or assistive devices? [email or web address] Information not available 11/14/2024 Are you able to care for yourself independently? 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 No [email or web address] Information not available 11/14/2024 What is your exercise level? None [email or web address] Information not available 11/14/2024 Mental Status Question Answer Note LastModified by Organization D etails LastModified Time Do you feel stressed (tense, restless, nervous, or anxious, or unable to sleep at night)? [id number] [email or web address] Information not available 11/14/2024 Family History Relationship Description Onset Age of this Age Resolved Age Notes LastModified by Organization Details LastModified Time Mother Schizophreni a [email or web address] Not available 2024 12:05:21 Mother Bipolar disorder Not available 2024 12:05:28 Mother Epilepsy [email or web address] Not availabl e 11/14/2024 12:05:36 Mother Malignant neoplasm of skin [email or web address] Not available 2024 12:05:44 Medical History Condition [...] ICD10 Code Diagnosis IMO Codes Diagnosis Note [id number] Wilian Ayers MD [place] [address] [address] 01/09/2025 14:50:42 01/09/2025 15:38:06 Pain in pelvis 79800930 R10.20 17622 Menorrhagia 771729598 N9 2.0 [id number] This patient is a 39 year old female with severe menorrhagi a and dysmenorrh ea along with uterine fibroids. We have agreed to perform robotic assisted hysterecto my with bilateral salpingect imtiaz. She understand s the risks, benefits, and alternativ es. She has completed the informed consent process and is ready to proceed. Dysmenorrhea [id number] N 94.6 61362 Health Concerns Section Related Observation LastModified by Organization Detai ls LastModified Time None Recorded Concern Status LastModified by Organization Details LastModified Time None Recorded Payers Encounter Date Sequence Insurance Name Policy Number Policy [place] Covered Member ID [place] Member ID Guarantor Name 01/09/2025 1 [id number] Elin Arce [id number] Elin Arce Notes Date Note Type Note Provider Name and Address Organization Details Recorded Time 01/09/2025 text/html 39-year-old female with uterine myoma, menorrhagia [...] minutes on her care in total. Wilian Ayers MD [address], [place], [address], [facility] 01/09/2025 15:37:28 OBGyn Episode No OBEpisode recorded.
--- OUTSIDE RECORDS SUMMARY | 2025-01-15 05:25 | XMS_ITS | Continuity of Care Document ---
Author Organization [facility] [place] Address [address] [place] [address] [place] [address] Assessment No assessment recorded. Plan of Treatment Reminders Order Date Submit Date Provider Last Modified By Organization Details Last Modified Time Details Appointments Robotic TLH 2024 10:30A Thelma WILLIS MD Not available Not available Not available SURG POST OP 2024 01:15P Thelma WILLIS MD Not available Not available Not available Lab None recorded. Referral None recorded. Procedures None recorded. Surgeries None recorded. Imaging US, pelvis 2024 025 [email or web address] [place], [address], [place], [address], 11/18/2024 18:04:29 US, transvagi nal 2024 025 ARLEEN [place], [address], [place], [address], 11/18/2024 18:27:41 Medication Orders None recorded. Patient TargetsNo targets recorded. Patient InstructionsNo instructions recorded. Reason for Referral None Reported. 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 Trich omona s vagin rodrigo [...] is recom leeann d, as clini bjorn ordoñez nted. Not Available [facility] (Lab) [address], [place], [address], 11/19/2024 13:34:52 11/19/19 25 11/18/2024 CBC W/DIF F WBC 7.6 10'3/ uL 3.5-10 .5 Not Available [facility] (Lab) [address] , [place], [address], 11/19/2024 14:28:02 11/19/19 25 11/18/2024 CBC W/DIF F RBC 3.71 10'6/ uL (based on docume nted legal sex) 3.80-5 .20 low Not Available [facility] (Lab) [address] , [place], [address], 11/19/2024 14:28:02 11/19/19 25 11/18/2024 CBC W/DIF F HGB 7.6 g/dL (based on docume nted legal sex) 11.6-1 5.4 low Not Available [facility] (Lab) [address], [place], [address], 11/19/2024 14:28:02 11/19/19 25 11/18/2024 CBC W/DIF F HCT 27.7 % (based on docume nted legal sex) 34.0-4 5.0 low Not Available [facility] (Lab) [address], [place], [address], 11/19/2024 14:28:02 11/19/19 25 11/18/2024 CBC W/DIF F MCV 74.7 fL 80.0-9 9.0 low Not Available [facility] (Lab) [address], [place], [address], 11/19/2024 14:28:02 11/19/19 25 11/18/2024 CBC W/DIF F MCH 20.5 pg 27.0-3 4.0 low Not Available [facility] (Lab) [address], [place], [address], 11/19/2024 14:28:02 11/19/19 25 11/18/2024 CBC W/DIF F MCHC 27.4 g/dL 32.0-3 5.5 low Not Available [facility] (Lab) [address], [place], [address], 11/19/2024 14:28:02 11/19/19 25 11/18/2024 CBC W/DIF F RDW 19.1 % 11.0-1 5.0 high Not Available [facility] (Lab) [address], [place], [address], 11/19/2024 14:28:02 11/19/19 25 11/18/2024 CBC W/DIF F plt 545 10'3/ uL 150-40 0 high Not Available [facility] (Lab) [address] [facility], [place], [address], 11/19/2024 14:28:02 11/19/19 25 11/18/2024 CBC W/DIF F MPV 9.3 fL 8.8-12 .1 Not Available [facility] (Lab) [address] [facility], [place], [address], 11/19/2024 14:28:02 11/19/19 25 11/18/2024 CBC W/DIF F NRBC's 0.0 % 0.0 Not Available [facility] (Lab) [address] [facility], [place], [address], 11/19/2024 14:28:02 11/19/19 25 11/18/2024 CBC W/DIF F absolute NRBCs 0.0 10'3/ uL no refere nce range establ ished Not Available [facility] (Lab) [address] [facility], [place], [address], 11/19/2024 14:28:02 11/19/19 25 11/18/2024 CBC W/DIF F neutrophils 62.3 % 34.0-7 3.0 Not Available [facility] (Lab) [address] [facility], [place], [address], 11/19/2024 14:28:02 11/19/19 25 11/18/2024 CBC W/DIF F lymphocytes 29.6 % 15.0-5 0.0 Not Available [facility] (Lab) [address] [facility], [place], [address], 11/19/2024 14:28:02 11/19/19 25 11/18/2024 CBC W/DIF F monocytes 6.7 % 1.0-15 .0 Not Available [facility] (Lab) [address] [facility], [place], [address], 11/19/2024 14:28:02 11/19/19 25 11/18/2024 CBC W/DIF F eosinophils 0.4 % 0.0-8. 0 Not Available [facility] (Lab) [address] [facility], [place], [address], 11/19/2024 14:28:02 11/19/19 25 11/18/2024 CBC W/DIF F basophils 0.7 % 0.0-2. 0 Not Available [facility] (Lab) [address] [facility], [place], [address], 11/19/2024 14:28:02 11/19/19 25 11/18/2024 CBC W/DIF [...] separ ately if prese nt. Not Available [facility] (Lab) [address] [facility], [place], [address], 11/19/2024 14:28:02 11/19/19 25 11/18/2024 CBC W/DIF F absolute neutrophils 4.8 10'3/ uL 1.5-8. 0 Not Available [facility] (Lab) [address] [facility], [place], [address], 11/19/2024 14:28:02 11/19/19 25 11/18/2024 CBC W/DIF F absolute lymphocytes 2.3 10'3/ uL 1.0-4. 0 Not Available [facility] (Lab) [address] [facility], [place], [address], 11/19/2024 14:28:02 11/19/19 25 11/18/2024 CBC W/DIF F absolute monocytes 0.5 10'3/ uL 0.2-1. 0 Not Available [facility] (Lab) [address] [facility], [place], [address], 11/19/2024 14:28:02 11/19/19 25 11/18/2024 CBC W/DIF F absolute eosinophils 0.0 10'3/ uL 0.0-0. 6 Not Available [facility] (Lab) [address], [place], [address], 11/19/2024 14:28:02 11/19/19 25 11/18/2024 CBC W/DIF F absolute basophils 0.1 10'3/ uL 0.0-0. 3 Not Available [facility] (Lab) [address], [place], [address], 11/19/2024 14:28:02 11/19/19 25 11/18/2024 CBC W/DIF [...] and book. nm.or g/gen derx Not Available [facility] (Lab) [address], [place], [address], 11/19/2024 14:28:02 11/19/19 25 11/18/2024 FSH, LH, [...] 154-3 243 pg/mL 2nd Trime ster 1561- 34335 pg/mL 3rd Trime ster 8525- >3000 0 pg/mL Not Available [facility] (Lab) [address], [place], [address], 11/19/2024 14:28:03 11/19/1911/18/2024 FSH, LH, ESTRA DIOL FSH 7.3 mIU/m L This assay was perfo rmed using [employer] ratio n reage nts and test kits. Value s obtai sammy with other assay metho ds or kits canno t be used inter [place] e[place] . Femal es Folli cular : 3.5-1 2.5 mIU/m L Ovula tion: 4.7-2 1.5 mIU/m L Lutea l: 1.7-7 .7 mIU/m L Postm enopa use: 25.8- 134.8 mIU/m L Not Available [facility] (Lab) [address], [place], [address], 11/19/2024 14:28:03 11/19/19 25 11/18/2024 FSH, LH, ESTRA DIOL LH 27.6 mIU/m L This assay was perfo rmed using [employer] n reage nts and test kits. Value s obtai sammy with other assay metho ds or kits canno t be used [place] . Femal es Mid-F ollic ular: 2.4-1 2.6 mIU/m L Mid-C ycle: 14.0- 95.6 mIU/m L Mid-L uteal : 1.0-1 1.4 mIU/m L Postm enopa use: 7.7-5 8.5 mIU/m L Not Available [facility] (Lab) [address], [place], [address], 11/19/2024 14:28:11/19/1911/18/2024 TSH, REFLE X FREE T4 TSH 0.64 uIU/m L 0.30-5 .33 Not Available [facility] (Lab) [address], [place], [address], 11/19/2024 14:28:03 11/19/19 25 11/18/2024 LIPID PANEL ,AMA (LDL- CALC) total cholesterol 171 mg/dL 0-199 Not Available [facility] (Lab) [address] [facility], [place], [address], 11/19/2024 14:28:03 11/19/19 25 11/18/2024 LIPID PANEL ,AMA (LDL- CALC) triglyceride s 81 mg/dL 0-150 NCEP Refer ence Value s for Trigl yceri mejia: Maria Fernanda l: <150 mg/dL Borde rline High: 150 - 199 mg/dL High: 200 - 499 mg/dL Very High: >/= 500 mg/dL Not Available [facility] (Lab) [address] [facility], [place], [address], 11/19/2024 14:28:03 11/19/19 25 11/18/2024 LIPID PANEL ,AMA (LDL- CALC) HDL cholesterol 53 mg/dL >40 Not Available [facility] (Lab) [address] [place], [address], 11/19/2024 14:28:03 11/19/19 25 11/18/2024 LIPID PANEL [...] mg/dL , HDL <40 mg/dL Not Available [facility] (Lab) [address] [place], [address], 11/19/2024 14:28:03 11/19/19 25 11/18/2024 LIPID PANEL ,AMA (LDL- CALC) non-HDL cholesterol 118 mg/dL no refere nce range A reaso nable goal for non-H DL luisa stero l is one that is 30 mg/dL highe r than the LDL luisa stero l goal. Not Available [facility] (Lab) [address], [place], [address], 11/19/2024 14:28:03 11/19/1911/18/2024 LIPID PANEL ,AMA (LDL- CALC) chol/HDL ratio 3.2 . 0.0-5. 0 On June 21, 2022, [facility] labor atori es de [place] ed the equat ion for calcu latin g estim ated low-d ensit y lipop rotei n-cho leste rol (LDL- C) from the Fried marlo equat ion to the Ivonne n/[facility] equat ion. This new equat ion is [...] Ivonne piña, Agapito Don, Roberth Srivastava , [facility] ivana paris, Rich Morales, Rich whiteside, Tam bal , and Sylvester Harding . 2013. Comp ariso n of a Novel Metho d vs the Fried marlo Equat ion for Estim ating Low-D ensit y Lipop rotei n Luisa stero l Level s from the Stand jane Lipid Profi le. JESSIKA: The Journ al of the Ameri can Medic al Assoc iatio n 310 (95): 2060- . - Edwardo patel V, Giselle J, Aris patel A, Jaciel Renee, Timur fernandes R, Janet patel E, Key bal RS, Mehdi SR, Ivonne piña SS. Fast ing Versu s Nonfa sting and Low-D ensit y Lipop rotei n Luisa stero l Accur acy. Circu latio n. 2017Feb 28;137 (1):1 0-19. Not Available [facility] (Lab) [address] [facility], [place], [address], 11/19/2024 14:28:03 11/19/19 25 11/18/2024 CMP(C OMPRE HENSI VE METAB OLIC PANEL ) sodium 138 mmol/ L 133-14 6 Not Available [facility] (Lab) [address] [facility], [place], [address], 11/19/2024 14:28:04 11/19/19 25 11/18/2024 CMP(C OMPRE HENSI VE METAB OLIC PANEL ) potassium 4.4 mmol/ L 3.5-5. 1 Not Available [facility] (Lab) [address] [facility], [place], [address], 11/19/2024 14:28:04 11/19/19 25 11/18/2024 CMP(C OMPRE HENSI VE METAB OLIC PANEL ) chloride 105 mmol/ L 98-107 Not Available [facility] (Lab) [address] [facility], [place], [address], 11/19/2024 14:28:04 11/19/19 25 11/18/2024 CMP(C OMPRE HENSI VE METAB OLIC PANEL ) carbon dioxide 26 mmol/ L 21-31 Not Available [facility] (Lab) [address] [facility], [place], [address], 11/19/2024 14:28:04 11/19/19 25 11/18/2024 CMP(C OMPRE HENSI VE METAB OLIC PANEL ) anion gap 7 mmol/ L 4-13 Not Available [facility] (Lab) [address] [place], [address], 11/19/2024 14:28:04 11/19/19 25 11/18/2024 CMP(C OMPRE HENSI VE METAB OLIC PANEL ) blood urea nitrogen 10 mg/dL 7-25 Not Available [facility] (Lab) [address] [facility], [place], [address], 11/19/2024 14:28:04 11/19/19 25 11/18/2024 CMP(C OMPRE HENSI VE METAB OLIC PANEL ) creatinine 0.87 mg/dL 0.60-1 .30 Not Available [facility] (Lab) [address] [facility], [place], [address], 11/19/2024 14:28:04 11/19/19 25 11/18/2024 CMP(C OMPRE HENSI VE METAB OLIC PANEL ) egfrcr (CKD-epi 2020) 86 mL/mi n/1.7 3_m2 >=60 Not Available [facility] (Lab) [address] [facility], [place], [address], 11/19/2024 14:28:04 11/19/19 25 11/18/2024 CMP(C OMPRE HENSI VE METAB OLIC PANEL ) calcium 10.8 mg/dL 8.3-10 .5 high Not Available [facility] (Lab) [address] [facility], [place], [address], 11/19/2024 14:28:04 11/19/19 25 11/18/2024 CMP(C OMPRE HENSI VE METAB OLIC PANEL ) glucose 91 mg/dL 70-100 Not Available [facility] (Lab) [address] [facility], [place], [address], 11/19/2024 14:28:04 11/19/19 25 11/18/2024 CMP(C OMPRE HENSI VE METAB OLIC PANEL ) protein, total 7.4 g/dL 6.4-8. 3 Not Available [facility] (Lab) [address] [facility], [place], [address], 11/19/2024 14:28:04 11/19/19 25 11/18/2024 CMP(C OMPRE HENSI VE METAB OLIC PANEL ) albumin 4.2 g/dL 3.5-5. 0 Not Available [facility] (Lab) [address] [facility], [place], [address], 11/19/2024 14:28:04 11/19/19 25 11/18/2024 CMP(C OMPRE HENSI VE METAB OLIC PANEL ) ALT 6 units /L 9-43 low Not Available [facility] (Lab) [address] [facility], [place], [address], 11/19/2024 14:28:04 11/19/19 25 11/18/2024 CMP(C OMPRE HENSI VE METAB OLIC PANEL ) alkaline phosphatase 78 units /L 34-104 Not Available [facility] (Lab) [address] [facility], [place], [address], 11/19/2024 14:28:04 11/19/19 25 11/18/2024 CMP(C OMPRE HENSI VE METAB OLIC PANEL ) AST 15 units /L 13-39 Not Available [facility] (Lab) [address] [facility], [place], [address], 11/19/2024 14:28:04 11/19/19 25 11/18/2024 CMP(C OMPRE HENSI VE METAB OLIC PANEL ) bilirubin, total 0.2 mg/dL 0.2-1. 2 Not Available [facility] (Lab) [address] [facility], [place], [address], 11/19/2024 14:28:04 11/19/19 25 11/18/2024 HEMOG LOBIN A1C hemoglobin A1C 5.4 % 4.0-5. 6 The Ameri can Diabe amos Assoc iatio n recom mends that a prima ry goal of thera py dasia owusu be a HBA1C of < 7% and that physi cians dasia owusu reeva luate the treat ment regim en in patie nts with HBA1C value s consi stent ly > 8%. <5.7% Maria Fernanda l 5.7 - 6.4% Incre ased risk for diabe amos >=6.5 % Diagn ostic of diabe amos <7.0% Goal of thera py >8.0% Actio n sugge sted Not Available [facility] (Lab) [address], [place], [address], 11/19/2024 14:28:04 11/19/1911/18/2024 US, pelvi s No observ ation record ed. [email or web address] [place] [address], [place], [address], 11/18/2024 18:27:33 11/19/19 25 11/18/2024 US, trans vagin al No observ ation record ed. [email or web address] [place] [address], [place], [address], 11/18/2024 18:27:42 11/19/19 25 11/18/2024 US, pelvi s No observ ation record ed. [email or web address] [address] [address], [place], [address], 11/18/2024 16:25:26 Result Notes None recorded. Procedures Surgical History Date Name Laterality Status Provider Name and Address Organization Details Recorded Time 11/14/2024 Date of Last Pap Smear completed Sabina Gambino [facility] 01/09/2025 14:58:56 Imaging Results None recorded. Procedure Notes None recorded. Medical Equipment None Reported. Allergies Allergen ID Allergen Name Allergen Category Reaction Reaction Severity Criticality Documentation Date Start Date Code Code System Note Provider Name and Address Organization Details Recorded Time 40358 Unable to Assess Not available eye swelling severe Not available 11/14/[address] [facility] 5 11:59:52 80188 Emeta medicatio n Not available Not available Not available 11/14/2024 02040 6 RxNorm swell ing of eyes and throa t Brittni carballo [facility] 5 12:00:05 Medications Name Sig Start [...] Available Not Available Not Avai lable Vitals None Recorded Social History Question Answer Notes LastModified by Organizat ion Details LastModified Time Tobacco Smoking Status Current Every Day Smoker Brittni Rees [facility], [facility] 11/14/2024 12:06:09 Do You Have An Advance Directive? No [email or web address] Information not available 11/14/2024 Are You Blind Or Do You Have Difficulty Seeing? Yes Left Eye Issue [email or web address] Information not available 11/14/2024 What Is Your Level Of Caffeine Consumption? Moderate [email or web address] Information not available 11/14/2024 In The 14 Days Before Symptom Onset, Have You Had Close Contact With A Laboratory-confir med COVID-19 While That Case Was Ill? No [email or web address] Information not available 11/14/2024 In The 14 Days Before Symptom Onset, Have You Had Close Contact With A Person Who Is Under Investigation For COVID-19 While That Person Was Ill? No [email or web address] Information not available 11/14/2024 Have You Been To An Area Known To Be High Risk For COVID-19? No [email or web address] Information not available 11/14/2024 Are You Deaf Or Do You Have Serious Difficulty Hearing? 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 LI81571-8 [email or web address] Information not available 11/14/2024 Are There Any Guns Present In Your Home? No [email or web address] Information not available 11/14/2024 Do You Use Protection During Sex? No Information not available 11/14/2024 Do You Use Your Seat Belt Or Car Seat Routinely? Yes [email or web address] Information not available 11/14/2024 Are You Sexually Active? No [email or web address] Information not available 11/14/2024 Do You Have Smoke And Carbon Monoxide Detectors In Your Home? Yes [email or web address] Information not available 11/14/2024 How Much Tobacco Do You Smoke? No [email or web address] Information not available 11/14/2024 Do You Use Sunscreen Routinely? No [email or web address] Information not available 11/14/2024 Have You Used IV Drugs? No [email or web address] Information not available 11/14/2024 Do You Have Difficulty Walking Or Climbing Stairs? No [email or web address] Information not available 11/14/2024 Sex: Unknown Functional Status Question Answer Note LastModified by Organizat ion Details LastModified Time Do you use any illicit or recreational drugs? No [email or web address] Information not available 11/14/2024 What is your level of alcohol consumption? None [email or web address] Information not available 11/14/2024 Are you currently employed? Yes [email or web address] Information not available 11/14/2024 Are you able to walk independently without assistance or assistive devices? [email or web address] Information not available 11/14/2024 Are you able to care for yourself independently? 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 No [email or web address] Information not available 11/14/2024 What is your exercise level? None [email or web address] Information not available 11/14/2024 Mental Status Question Answer Note LastModified by Organization D etails LastModified Time Do you feel stressed (tense, restless, nervous, or anxious, or unable to sleep at night)? [id number] [email or web address] Information not available 11/14/2024 Family History Relationship Description Onset Age of this Age Resolved Age Notes LastModified by Organization Details LastModified Time Mother Schizophreni a [email or web address] Not available 2024 12:05:21 Mother Bipolar disorder [email or web address] Not available 2024 12:05:28 Mother Epilepsy [email or web address] Not availabl e 11/14/2024 12:05:36 Mother Malignant neoplasm of skin [email or web address] Not available 2024 12:05:44 Medical History Condition Response Allergies (Food, seasonal, environmental ) N Other N Breast Cancer N Drug/Latex Allergies/Reactions N Blood Transfusion N Lung Disease N Dermatologic Disorders N Defects or Inherited Disease N Breast Problem N Gestational Diabetes N Hematologic disorders N Anesthesia Complications N History of STI N Deep Vein Thrombosis N Polycystic ovary syndrome N Anxiety Disorder N Autoimmune disease N Arthritis N Polyps N Infertility N History of abnormal pap N Acid Reflux (GERD) N Cancer N Varicosities N Stroke N Neurologic/Epilepsy N Endometriosis N High Cholesterol [...] ICD10 Code Diagnosis IMO Codes Diagnosis Note [id number] NYLA CALHOUN NP [facility] [address] [address] 11/14/2024 11:38:30 11/14/2024 14:17:02 Routine gynecologic examination [id number] Z01.419 [id number] Annual gynecologi santy exam performed. Patient will [...] STI testing - requested Screening mammography 24 374263 Z12.31 [id number] Menopausal symptom 91511 002 N95.1 126563 Reviewed self-help strategies (dietary changes/ex ercise/acu puncture/e tc.), herbal and other OTC therapies, hormonal options as well as other medication s used to treat common menopausal symptoms.W ill order labs to assess for samira-menop ause and r/o other causes of samira-menop ausal sx. Venereal d isease screening [id number] Z11.3 343599 Pt requested STI testing.Di scussed the various types of STDs, related symptoms and the potential consequenc es (including effects on fertility) of STD infections . Reviewed ways to limit exposure and prevention techniques . Menorrhagia [id number] N9 2.0 5605033 -Chronic dysmenorrh ea and heavy periods-Hx uterine [...] consult with ; patient desires hysterecto my. [id number] Wilian Willis MD [facility] [address] [address] 11/18/2024 11:25:42 11/18/2024 12:16:21 Menorrhagia [id number] N92.0 N95.1 [id number] Health Concerns Section Related Observation LastModified by Organization Detai ls LastModified Time None Recorded Concern Status LastModified by Organization Details LastModified Time None Recorded Payers Encounter Date Sequence Insurance Name Policy Number Policy [employer] Covered Member ID [employer] Member ID Guarantor Name 11/18/2024 1 [employer] [id number] Elin Arce [id number] Elin Arce OBGyayana Episode No OBEpisode recorded.
[2025-01-15] MEDS: LACTATED RINGERS 1,000 ML 30 ML IV CONT ×2 (09:35→12:36)
[2025-01-15] MEDS: KETOROLAC 15 MG/ML VIAL (*BKC) IV PUSH (09:45)
--- NOTE | 2025-01-15 09:53 | WPDHPUPDATE1 ---
History and Physical Update Update Date/Time: 01/15/25 09:53 This patient is a old female with severe menorrhagia who is to have robotic assisted hysterectomy with bilateral salpingectomy. She was admitted early for blood transfusion. She received 3 units packed red blood cells. History and Physical has been reviewed, including an updated exam of the patient. There are NO changes in the patient's condition. Risks, benefits, and alternatives have been discussed and questions answered. Patient agrees to proceed with procedure.
[2025-01-15 09:54] LABS: BEDSIDEPREGUCG Negative (Negative)
--- NOTE | 2025-01-15 10:12 | WPDANESEPPF ---
Anes - Initial Pre Proc Eval Procedure: Operation Date: 01/15/25 10:30 Proposed Procedures p Robotic Assisted Hysterectomy with Bilateral Salpingectomy - Wilian Willis MD Date/Time: 01/15/25 10:12 Surgeon: Wilian Willis MD Pre Op Diagnosis: blood transfusion Patient Data Age: 39 Gender: F Height: 1.54 m Weight: 49.9 kg Last Vital Signs Temp 36.8 C 01/15/25 09:20 Pulse 65 01/15/25 09:20 Resp 18 01/15/25 09:20 BP 128/80 01/15/25 09:20 Pulse Ox 100 01/15/25 09:20 O2 Del Method Room Air 01/15/25 09:20 Allergies Allergy/AdvReac Type Severity Reaction Status Date / Time fexofenadine Allergy Unknown Difficulty Verified 01/15/25 09:40 Swallowing Home Medications ?Medication ?Instructions ?Recorded ?Confirmed ?Type ashwagandha root extract 500 mg 500 mg PO DAILY 01/01/25 01/15/25 History capsule multivitamin (Daily Multi-Vitamin 1 tablet PO DAILY 01/01/25 01/15/25 History tablet) Laboratory Tests 01/14/25 01/15/25 01/15/25 18:15 04:11 09:30 Hgb 6.5 L* g/dL 10.7 L D g/dL (12.0-15.0) (12.0-15.0) Hct 23.2 L % 34.5 L % (37.0-47.0) (37.0-47.0) POC Urine HCG, Qual Negative (Negative) Blood Type O Positive Antibody Screen Negative Crossmatch See Detail Patient hx anesthesia problems: none Family hx anesthesia problems: none Results Review: All pre-operative results and documents have been reviewed as part of the pre-operative evaluation. [facility] Past Medical History Medical History (Updated 01/15/25 @ 10:17 by Rohan Longoria MD) Anemia Social History Social History Years smoked: 20 Smoking status: Current every day smoker Tobacco type: e-cigarettes/vaping Smoking end date: 01/02/24 Alcohol intake: never Substance use: current Substance use type: marijuana Other substance usage details: Several times a day for the pain. Last use: 01/14/2025 Living arrangements: alone Gender identity (if verbalized by the patient): Female Sexual Orientation (if Verbalized by the Patient): Straight or Heterosexual Spiritual care concerns: No Anes - Eval Final PreProcedure Day of Procedure 01/15/25 10:12 Patient weight: thin Heart: regular rate and rhythm Lungs: clear to auscultation Airway: Mallampati scale class II and special considerations poor dentition Neurological: alert and oriented Last oral intake: >/= 8 hours ASA classification: III Emergent: no Anesthetic plan: proceed Anesthesia type and monitoring: general ETT and standard monitoring Results Review: All pre-operative results and documents have been reviewed as part of the pre-operative evaluation. Informed Consent: The patient's anesthetic plan and its attendant risks and benefits were discussed with the patient/family/POA. Questions were solicited and answers provided to the satisfaction of the patient/family/POA.
[2025-01-15] MEDS: ceFAZolin 2 GM in SODIUM CHLORIDE 0.9% IV 50 ML 100 ML IVPB (10:38)
--- NOTE | 2025-01-15 11:48 | S_PTH ---
PATIENT: Elin Arce LOC: ANHOB2 U#:[id number] AGE/SX: 39/F ROOM: 283 RE01/14/[address]: Wilian Willis MD : [id number] BED: 00 DIS: 01/16/2025 SPEC #: [id number] RECD: 01/15/25 13:35 STATUS: ABHINAV REQ #: [id number] ASHLEY: 01/15/25 11:[address]: Wilian Willis DEPT: [facility] Surgical RECD BY: Thomas Currie ENTERED: 01/15/25 13:35 SP TYPE: Surgical OTHR DR: BANANA EXPERT PHYSICIAN Ray Mckeon MD Tissues: A - Uterus Procedures: Hematoxylin and Eosin Stain Gross and Microscopic Level 5
[2025-01-15] MEDS: fentaNYL CITRATE INJ (*CRX) 100 MCG/2 ML VIAL 25 MCG IV PUSH ×7 (12:48→13:51)
--- NOTE | 2025-01-15 12:49 | W.PM.PROC2 ---
Procedure Note - Detailed Date of Procedure 01/15/25 Pre-op Diagnosis blood transfusion, menorrhagia, severe in the Post-op Diagnosis Same Procedure Performed Robot assisted Total hysterectomy with bilateral salpingectomy. Surgeon Wilian Willis MD Anesthesia General Indications heavy vaginal bleeding, pelvic pain Findings Enlarged fibroid uterus, 12 weeks, normal-appearing tubes and ovaries Description of Procedure This patient was taken to the operating room. She was prepped and draped in the dorsal lithotomy position after induction of general anesthesia. The uterine manipulator and Andrea cup were placed. This was done with a speculum and tenaculum. The speculum was placed. The cervix was grasped with a tenaculum. The stay sutures were placed at 3 and 9:00 a.m.. The stay sutures of 0 Vicryl were tied to the appropriately Size scope after it was slipped around the cervix.. The tip of the CARSON manipulator was placed in the intrauterine cavity. The cup was slid into place around the cervix and into the fornices. It was locked into place. The sutures were then wrapped around the handle and tied under tension. A 8 mm skin incision was made in the left upper quadrant the abdomen. a 5 mm Visiport trocar was inserted into abdominal cavity and pneumoperitoneum was achieved. A 8 mm supraumbilical incision was made and a 8 mm trocar was inserted into the intrauterine cavity under direct visualization of the scope. an 8 mm incision was made in the right upper quadrant of the abdomen and an 8 mm robotic trocar was placed the inter uterine cavity under direct visualization the scope. An 11 mm trocar was inserted in the right upper quadrant of the abdomen rectal is a cystoscope after an incision was made there as well. The robot was docked. Electronic Orientation of the robot was performed. Bilateral ureteral lysis was performed. This was done from the pelvic brim down to the uterine artery. This was done with careful dissection using sharp and blunt dissection. The fallopian tubes were removed bilaterally. The mesosalpinx around the fallopian tubes were cauterized transected with LigaSure cautery. This was done in a bilateral fashion from the ovary to the uterine cornua. The fallopian tube was transected at the uterine cornu and amputated. The tube was taken out the left lower quadrant trocar site. In a stepwise fashion along the lateral aspects of the uterus the round ligament and broad ligaments were cauterized transected down to the level of the uterine arteries. A bladder flap was created in the bladder was moved distally to the end of the cervix and over the Andrea cup. The bilateral uterine arteries were cauterized and transected. Colpotomy was then performed. In a circumferential fashion the vagina was transected using unipolar cautery. The incision was made down on the Andrea cup. The uterus and cervix were taken out through the vagina. A pneumo occluder was placed in the vagina. The vaginal cuff was closed with a 0 V lock suture in a running fashion. The pelvis was irrigated with copious amounts antibiotic irrigation. The ureters were again examined and found to be intact and flowing freely under the uterine arteries into the bladder. The bladder was intact. It was examined directly. Cystoscopy was performed after administration of methylene blue. The cystoscope was inserted. Bladder was distended with fluid. The ureteric meatus was observed bilaterally. Blue fluid was seen to egress bilaterally. The bladder was drained and the cystoscope was withdrawn. The vagina was irrigated with Betadine solution after removal of the Pneumo occluder. the trocars were removed after the robot was undocked. The skin was closed with subacute or Dermabond. The patient was taken to recovery room. She was stable condition. Sponge lap and needle counts were correct x2. Estimated Blood Loss 125 Urine Output 800 Drains Yes Packing No Pathology Yes Complications No immediate complications Condition Stable Disposition Floor
[2025-01-15] MEDS: ACETAMINOPHEN ELIXIR 325 MG/10.15 ML UDC 1000 MG PO ×2 (14:52→22:37)
[2025-01-15] MEDS: oxyCODONE (*CRX) 5 MG/5 ML ORAL SOLN IR PO (15:09)
[2025-01-15] MEDS: KETOROLAC 30 MG/ML VIAL (*BKC) IV PUSH ×2 (15:54→22:38)
[2025-01-15] MEDS: SIMETHICONE 80 MG TAB.CHEW PO (22:37)
[2025-01-16 04:20] VITALS: BP 142/90; PULSE 64; RESP 16; TEMP 36.6; O2SAT 100
[2025-01-16] MEDS: ACETAMINOPHEN ELIXIR 325 MG/10.15 ML UDC 1000 MG PO ×2 (04:39→11:03)
[2025-01-16] MEDS: KETOROLAC 30 MG/ML VIAL (*BKC) IV PUSH (04:39)
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
[2025-01-16 08:05] VITALS: BP 138/77; PULSE 86; RESP 16; TEMP 37; O2SAT 100
[2025-01-16] MEDS: SIMETHICONE 80 MG TAB.CHEW PO ×2 (09:15→11:55)
--- NOTE | 2025-01-16 10:03 | P.PNOB_ITS ---
EXERCISE SCIENCE INSTRUCTOR - A/P Postoperative Procedures: Procedures Operation Date: 01/15/25 10:30 Actual Procedure Side Surgeon p Robotic Assisted Hysterectomy with Bilateral Salpingectomy Wilian Willis MD Postoperative day: 1 Postoperative status: doing well Postoperative plan: see orders Time Spent With Patient Time: Total time spent is greater than 50% in coordination of care (as documented) at patient's floor/unit and/or counseling patient: Time with patient: less than 15 minutes EXERCISE SCIENCE INSTRUCTOR- PN:Subj Post-Op Subjective Date/time seen: 01/16/25 10:03 Subjective: patient reports feeling better, patient has no complaints and pain is well controlled Exam 2 Const: General: healthy appearing, comfortable and no acute distress Resp: Auscultation: clear to auscultation bilaterally, no rales, no rhonchi and no wheezes Cardio: Rate: regular rate Heart sounds: no click, no murmurs and no rubs GI: Inspection: non-distended Auscultation: normal bowel sounds Extrem: General: normal to inspection, no pedal edema and no calf tenderness EXERCISE SCIENCE INSTRUCTOR - PN: Obj Data Vital Signs Vital Signs: Vital Signs - 24 hr 01/15/25 12:36 01/15/25 12:50 01/15/25 13:05 Temperature 98.9 F Pulse Rate 73 60 59 L Respiratory Rate 14 12 12 Blood Pressure 137/89 140/75 140/75 Pulse Oximetry 100 100 100 Oxygen Delivery Simple Face Mask Nasal Cannula Nasal Cannula Oxygen Flow Rate 8 2 2 01/15/25 13:20 01/15/25 13:35 01/15/25 13:50 Temperature Pulse Rate 58 L 78 58 L Respiratory Rate 12 16 12 Blood Pressure 132/77 151/73 H 148/84 H Pulse Oximetry 100 100 100 Oxygen Delivery Nasal Cannula Nasal Cannula Nasal Cannula Oxygen Flow Rate 2 2 2 01/15/25 14:00 01/15/25 14:20 01/15/25 16:00 Temperature 97.9 F Pulse Rate 67 72 Respiratory Rate 14 18 Blood Pressure 125/73 160/83 H 181/87 H Pulse Oximetry 100 100 Oxygen Delivery Nasal Cannula Oxygen Flow Rate 2 01/15/25 17:00 01/15/25 19:50 01/15/25 19:50 Temperature 98.2 F Pulse Rate 66 Respiratory Rate 16 Blood Pressure 145/80 H 141/80 H Pulse Oximetry 100 Oxygen Delivery Room Air Oxygen Flow Rate 01/15/25 23:40 01/15/25 23:40 01/16/25 04:20 Temperature 98.3 F 98 F Pulse Rate 66 64 Respiratory Rate 16 16 Blood Pressure 150/83 H 142/90 H Pulse Oximetry 100 100 Oxygen Delivery Room Air Oxygen Flow Rate 01/16/25 08:05 Temperature 98.6 F Pulse Rate 86 Respiratory Rate 16 Blood Pressure 138/77 Pulse Oximetry 100 Oxygen Delivery Oxygen Flow Rate Intake/Output Intake/Output: Intake & Output 01/13/25 01/14/25 01/15/25 01/16/25 23:59 23:59 23:59 23:59 Intake Total 350 1300 Output Total 2390 Balance 350 -1090 Meds/Results Medications: Active Medications Generic Name Dose Route Start Last Admin Trade Name Freq PRN Reason Stop Dose Admin Acetaminophen 1,000 mg 01/15/25 15:00 01/16/25 04:39 Acetaminophen Elixir 325 Mg/10.15 Ml Udc PO 1,000 mg Q6H [facility] Administration Docusate Sodium 100 mg 01/15/25 17:00 Docusate Sodium 100 Mg Capsule PO BID [facility] Dextrose/Sodium Chloride 1,000 mls @ 125 mls/hr 01/15/25 14:04 Dextrose 5% Sodium Chloride 0.45% IV CONT .Q8H [facility] Ibuprofen 600 mg 01/16/25 12:00 Ibuprofen Suspension 200 Mg/10 Ml Udc PO Q6H [facility] Naloxone HCl 0.1 mg 01/15/25 14:04 Naloxone Hcl 0.4 Mg/Ml Vial IV PUSH Q2M PRN Respiratory rate less than 10 Ondansetron HCl 4 mg 01/15/25 14:04 Ondansetron Inj 4 Mg/2 Ml Vial IV PUSH Q6H PRN Nausea And Vomiting Oxycodone HCl 10 mg 01/15/25 14:32 Oxycodone (*Crx) 5 Mg/5 Ml Oral Soln Ir PO Q4H PRN Pain Rated 7-10 Oxycodone HCl 5 mg 01/15/25 14:39 01/15/25 15:09 Oxycodone (*Crx) 5 Mg/5 Ml Oral Soln Ir PO 5 mg Q4H PRN Administration Pain Rated 4-6 Simethicone 80 mg 01/15/25 17:00 01/16/25 09:15 Simethicone 80 Mg Tab.Chew PO 80 mg TIDWM [facility] Administration Labs 01/15/25 04:11
[2025-01-16] MEDS: IBUPROFEN SUSPENSION 200 MG/10 ML UDC 600 MG PO (10:58)
[2025-01-16] MEDS: DOCUSATE SODIUM 100 MG CAPSULE PO (11:55)
[2025-01-16] MEDS: oxyCODONE (*CRX) 5 MG/5 ML ORAL SOLN IR PO (12:29)
--- NOTE | 2025-01-16 13:29 | PCCCNOTE ---
Received call from nursing that pt. will require a cab voucher at discharge to help with transportation at discharge. Went to provide voucher however per pt. her neighbor has become available to transport her home.
--- NOTE | 2025-02-16 12:13 | PM.OBTRLD ---
OB - Triage/Final Diagnosis Visit Information Comments/Additional reasons for admission: I have assessed the risk for this patient, Elin Arce, and determined that she would benefit from observation care. Evaluation Laboratory results: Laboratory Tests 01/14/25 01/15/25 01/15/25 18:15 04:11 09:30 Hgb 6.5 L* 10.7 L D Hct 23.2 L 34.5 L POC Urine HCG, Qual Negative Blood Type O Positive Antibody Screen Negative Crossmatch See Detail Final Diagnosis (1) Postoperative abdominal pain: Code(s): R10.9 - Unspecified abdominal pain; G89.18 - Other acute postprocedural pain Status: Acute
== END 2025-01-16 12:53 | disposition home or self-care (01) ==
PROVIDERS: Admitting Provider Obstetrics & Gynecology; Visit Provider Obstetrics & Gynecology
PROC: (CPT 58573; principal; 2025-01-15 10:30)
DX: N92.0 Excessive and frequent menstruation with regular cycle (principal); R10.20 Pelvic and perineal pain unspecified side; R13.19 Other dysphagia; R63.0 Anorexia; R68.81 Early satiety; R63.4 Abnormal weight loss; K59.00 Constipation, unspecified; K64.0 First degree hemorrhoids; K92.1 Melena; F17.290 Nicotine dependence, other tobacco product, uncomplicated
CPT/HCPCS: 58573; S2900; 36415; 36430; 85014; 85018; 86850; 86900; 86901; 86920; 86923; 88307; 96361; 96374; 96375; 96376; J0690; A9270; G0378; G0379; J1885; J2250; J3010; J7030; J7120; P9016; Q9968